=== PATIENT | male | born 1945 | race Caucasian/White ===

== ENCOUNTER 2024-03-16 08:58 | Inpatient (IN) ==
--- NOTE | 2024-03-09 09:05 | Anesthesiology Consultation ---
Date of Service March 09, 2024 Assessment & Plan (1) Encounter for pre-operative examination: Plan - will add cardiac event monitor report from [facility] if completed before surgery for chart completion, if not available by time of surgery patient is acceptable to proceed given indication for procedure. - cardiology office note 05/12/23: "...follow up of CAD...doing overall well...denies anginal complaints...bilateral internal carotid artery stenosis of 50-69%...follow up 1 year..." Patient states that quality assurance coordinator was made aware of TIA and ordered 30 day cardiac event monitor which patient is wearing until 03/07/24. Nat with surgeon's office confirmed their office is aware. OR notified. - difficult intubation. - Per clinician oncology on 03/03/24: No known infectious disease contacts, current infectious disease symptoms in past 10 days or COVID positive test result in the past 30 days. Chart Review Chart Review: Acceptable Risk for Surgery and Patient NOT seen in Pre Admission Testing History Surgery Operation Date: 03/16/24 10:05 Proposed Procedures p Left Transcarotid Artery Revascularization - Stanislaw Lares MD Height/Weight Height: 5 ft 8 in Weight: 83.915 kg Allergies Allergy/AdvReac Type Severity Reaction Status Date / Time adhesive tape Allergy Severe water Verified 03/03/24 09:00 blisters and skin irritation codeine Allergy Intermediate Rash Verified 03/03/24 09:00 Penicillins Allergy Unknown Unknown Verified 03/03/24 09:00 Sulfa (Sulfonamide Allergy Unknown Unknown Verified 03/03/24 09:00 Antibiotics) [id number] Reductase AdvReac Intermediate Muscle Pain Verified 03/03/24 09:00 Inhibitor Medications Home Medications Medication Instructions Recorded Confirmed Last Taken ascorbate calcium (vitamin C) 500 500 mg PO QAM 02/23/24 03/03/24 Unknown mg tablet baclofen 5 mg tablet 5 mg PO TID PRN muscle spasms 02/23/24 03/03/24 Unknown chlorpheniramine maleate 4 mg 4 mg PO BID PRN seasonal allergies 02/23/24 03/03/24 Unknown tablet cholecalciferol (vitamin D3) 125 125 mcg PO QAM 02/23/24 03/03/24 Unknown mcg (5,000 unit) tablet (Vitamin D3) clindamycin HCl 300 mg capsule 300 mg PO UD PRN dental procedures 02/23/24 03/03/24 Unknown clopidogrel 75 mg tablet 75 mg PO QAM 02/23/24 03/03/24 Unknown cyanocobalamin (vitamin B-12) 500 500 mcg PO QAM 02/23/24 03/03/24 Unknown mcg tablet (Vitamin B-12) ezetimibe 10 mg tablet 5 mg PO BID 02/23/24 03/03/24 Unknown levothyroxine 50 mcg tablet 50 mcg PO QAM 02/23/24 03/03/24 Unknown lisinopril 20 mg tablet 20 mg PO QAM 02/23/24 03/03/24 Unknown magnesium 250 mg tablet 250 mg PO QAM 02/23/24 03/03/24 Unknown metoprolol tartrate 25 mg tablet 12.5 mg PO BID 02/23/24 03/03/24 Unknown vitamin B complex 1 tab PO QAM 02/23/24 03/03/24 Unknown ofloxacin 0.3 % eye drops 5 drp otic (ear) BID 03/03/24 03/03/24 Unknown Past Medical History Medical History CAD (coronary artery disease) follows with Dr. Jackson Ear infection original surgery on 03/01 cancelled due to ear infection, which started on 02/27, saw ear doctor, Curt Nunez NP in [place] and will see again on 03/12/24 prior to surgery History of difficult intubation Questionable - Patient states he was told he "should be intubated with a smaller scope" [facility] History of TIA (transient ischemic attack) 01/27/24 - treated at [facility]. presented with dizziness and weakness of right hand. Did not see cardio but states that cardio made aware of recent TIA and recommended 30 day conveyor monitor (patient currently wearing, to end 03/07/[address] Jackson) Hx of colonic polyps Hx of renal calculi (2020) passed on his own Hyperlipidemia Hypertension Hypothyroidism On anticoagulant therapy Osteoarthritis Peripheral neuropathy bilateral feet Sleep apnea unable to tolerate CPAP at night Past Family History Family History Other No family history of adverse response to anesthesia Past Surgical History Surgical History History of cardiac cath (05/2019) prior to CABG History of cataract surgery right eye History of colonoscopy History of left hip replacement History of right hip replacement S/P CABG x 5 (05/2019) [facility] Andres S/P ear surgery Dr Tse S/P right inguinal hernia repair S/P tympanoplasty replacement of ear drum Social History Smoking Status: Never smoker Do You Dip or Chew Tobacco: No Hx Alcohol Use: Yes Alcohol type: beer alcohol intake frequency: holidays/special occasions only Hx Substance Use: No substance use type: does not use Testing Laboratory Results 01/27/24 WBC: 7.2 H/H: 16/50 PLATELETS: 131,000 SODIUM: 140 POTASSIUM: 4.6 CHLORIDE: 105 CO2: 30 BUN: 14 CREATININE: 1.2 GLUCOSE: 129 PT: 11.4 PTT: 33.3 INR: 0.9 UA: negative Electrocardiogram Date: 01/27/24 Sinus bradycardia with first degree AV block, rate 56 bpm Possible LA enlargement Possible LVH Chest X-Ray Date: 01/27/24 *1view* No acute cardiopulmonary process. Echocardiogram Date: 01/28/24 EF 60-65% Although no diagnostic regional wall motion abnormality is identified, this possibility cannot be completely excluded on the basis of this study Mitral valve annulus is mildly calcified Cardiac Catheterization Date: 06/02/19 Left main: 80% narrowing LAD: 95% stenoses; mid 50-60% narrowing LCx: diffuse proximal 90% stenosis RCA: diffuse proximal 95% stenosis EF 50% Subsequent CABG x 5
--- NOTE | 2024-03-15 15:59 | History & Physical Report ---
Date of Service March 15, 2024 History of Present Illness Primary Care Provider: JAKOB Barrera Reason for Consultation Symptomatic left internal carotid artery stenosis History of Present Illness I had the pleasure of seeing Patric today for evaluation of his left carotid. As you know he is a 78-year-old gentleman who in the end of January suffered a left hemispheric stroke which even weakness in his right arm which lasted approximately 4 to 5 hours. He did return to normal at that time. He has no recurrent episodes or previous episodes of this problem. He had a CT angiogram which showed a 60 to 65% narrowing of the left internal carotid artery. He does have a history of hypertension and coronary disease. He is on Plavix. Review of Systems 10 systems were reviewed. Positive findings are per the HPI. Physical Exam Vitals & Measurements Input and Output - Last 24 hours (Last 8 hours) No I/O Data Found: On exam he is awake alert and oriented x 3. He is in no apparent distress. His blood pressure is 130/80 on the right and 128/80 on the left. Radials and carotids are +2 bilaterally. I cannot appreciate any carotid bruits. His lungs are clear his heart is regular rate and rhythm. Abdominal exam is benign. There is no abnormal dilatation of the aorta. Vascular exam reveals radials carotids +2 bilaterally. Femorals and pedal pulses are all +2 bilaterally. Neurologic exam is intact to motor and sensory function. Diagnostic Results Carotid ultrasound done today of the left carotid showed no increased velocities but a moderate amount of plaque present. CT angiogram showed approximately 70% narrowing of his left internal carotid artery with an area that may be an ulcerative plaque with intraplaque hemorrhage. Assessment/Plan 1. Carotid stenosis, bilateral At this point with the 70% narrowing and the ulcerative plaque on the CT angiogram and the patient with symptoms, we recommended intervention on the left carotid. We went over the risks options and benefits of carotid endarterectomy versus TCAR. The patient and elected to go ahead with the TCAR procedure the left carotid. The risks options and benefits were discussed again and documented in the consent form. They are agreeable to go ahead with this procedure. Will keep you informed as to the results. Thank you very much for letting us participate in the care of this patient. Sincerely, Sweetie Lares MD Attestation I have personally spent ___55__ minutes performing [id number] and fpc-tomc-wy-face activities on this date of service. Activities Include: _x_ review of the medical record _x_ obtaining a history __x physical exam/evaluation __ review labs _x review radiology reports __x counseling/educating patient/family/caregiver __ discussion/referral to other healthcare professional _x_ documenting care in the medical record __x independent interpretation of results cta done at [facility] __ communication of results to patient/family/caregiver __ coordination of care Problem List/Past Medical History Ongoing Carotid stenosis, bilateral Medications Home acetaminophen(acetaminophen 325 mg oral tablet), 650 mg= 2 tab, PO, q4h, PRN ascorbic acid(Glenda-C 500 mg oral tablet), 500 mg, PO, Daily aspirin(aspirin 81 mg oral delayed release tablet), 81 mg= 1 tab, PO, Daily baclofen(baclofen 10 mg oral tablet), 10 mg= 1 tab, PO, tid cholecalciferol(cholecalciferol 125 mcg (5000 intl units) oral tablet), 125 mcg= 1 tab, PO, Daily clopidogrel(clopidogrel 75 mg oral tablet) cyanocobalamin(Vitamin B12 500 mcg oral tablet), 500 mcg= 1 tab, PO, Daily ezetimibe(ezetimibe 10 mg oral tablet) levothyroxine(levothyroxine 50 mcg (0.05 mg) oral tablet), 50 mcg= 1 tab, PO, Daily lisinopril(lisinopril 20 mg oral tablet), 20 mg= 1 tab, PO, Daily loratadine(loratadine 10 mg oral capsule), 10 mg= 1 cap, PO, Daily magnesium oxide(magnesium oxide 250 mg oral tablet), 250 mg= 1 tab, PO, Daily metoprolol(Metoprolol Tartrate 25 mg oral tablet), 12.5 mg= 0.5 tab, PO, bid multivitamin(B-Complex 50 oral tablet), 1 tab, PO, Daily zinc acetate(zinc (as acetate) 50 mg oral capsule), 50 mg= 1 cap, PO, Daily Allergies PCN (penicillin) unknown codeine unknown sulfa drugs unknown Signature Line Electronic Signature on File Stanislaw Lares MD Author Signature Dt/Tm: 02/19/2024 12:30 PM Neurological Physiotherapist Adan Watsno [facility] [place] [address], [address] [place] [address] EJS Result Type: .Outpt Ltr Date of Service: February 19, 2024 12:24 EDT Authorization Status: Final Subject: Consult Note Author or Import Date: MD Lares Eugene J on February 19, 2024 12:30 EDT Verified By: MD Lares Eugene J on February 19, 2024 12:30 EDT Encounter info: [id number], [place] [id number], Clinic, 02/19/2024 - 02/19/2024 Allergies Allergy/AdvReac Type Severity Reaction Status Date / Time adhesive tape Allergy Severe water Verified 03/03/24 09:00 blisters and skin irritation codeine Allergy Intermediate Rash Verified 03/03/24 09:00 Penicillins Allergy Unknown Unknown Verified 03/03/24 09:00 Sulfa (Sulfonamide Allergy Unknown Unknown Verified 03/03/24 09:00 Antibiotics) [id number] Reductase AdvReac Intermediate Muscle Pain Verified 03/03/24 09:00 Inhibitor Home Medications Medication Instructions Recorded Confirmed Type ascorbate calcium (vitamin C) 500 500 mg PO QAM 02/23/24 03/03/24 History mg tablet baclofen 5 mg tablet 5 mg PO TID PRN muscle spasms 02/23/24 03/03/24 History chlorpheniramine maleate 4 mg 4 mg PO BID PRN seasonal allergies 02/23/24 03/03/24 History tablet cholecalciferol (vitamin D3) 125 125 mcg PO QAM 02/23/24 03/03/24 History mcg (5,000 unit) tablet (Vitamin D3) clindamycin HCl 300 mg capsule 300 mg PO UD PRN dental procedures 02/23/24 03/03/24 History clopidogrel 75 mg tablet 75 mg PO QAM 02/23/24 03/03/24 History cyanocobalamin (vitamin B-12) 500 500 mcg PO QAM 02/23/24 03/03/24 History mcg tablet (Vitamin B-12) ezetimibe 10 mg tablet 5 mg PO BID 02/23/24 03/03/24 History levothyroxine 50 mcg tablet 50 mcg PO QAM 02/23/24 03/03/24 History lisinopril 20 mg tablet 20 mg PO QAM 02/23/24 03/03/24 History magnesium 250 mg tablet 250 mg PO QAM 02/23/24 03/03/24 History metoprolol tartrate 25 mg tablet 12.5 mg PO BID 02/23/24 03/03/24 History vitamin B complex 1 tab PO QAM 02/23/24 03/03/24 History ofloxacin 0.3 % eye drops 5 drp otic (ear) BID 03/03/24 03/03/24 History Past Med/Surg History Problem List Encounter for pre-operative examination Medical History CAD (coronary artery disease) follows with Dr. Jackson Ear infection original surgery on 03/01 cancelled due to ear infection, which started on 02/27, saw ear doctor, Curt Nunez NP in [facility] and will see again on 03/12/24 prior to surgery History of difficult intubation Questionable - Patient states he was told he "should be intubated with a smaller scope" after 2018 CABG ([facility] Andres 05/2019) History of TIA (transient ischemic attack) 01/27/24 - treated at [facility]. presented with dizziness and weakness of right hand. Did not see cardio but states that cardio made aware of recent TIA and recommended 30 day cafeteria monitor (patient currently wearing, to end 03/07/[address] Jackson) Hx of colonic polyps Hx of renal calculi (2020) passed on his own Hyperlipidemia Hypertension Hypothyroidism On anticoagulant therapy Osteoarthritis Peripheral neuropathy bilateral feet Sleep apnea unable to tolerate CPAP at night Surgical History History of cardiac cath (05/2019) prior to CABG History of cataract surgery right eye History of colonoscopy History of left hip replacement History of right hip replacement S/P CABG x 5 (05/2019) [facility] Andres S/P ear surgery Dr [place] S/P right inguinal hernia repair S/P tympanoplasty replacement of ear drum Family History Other No family history of adverse response to anesthesia Social History Smoking Status: Never smoker Second Hand Exposure: No; Do You Dip or Chew Tobacco: No; Tobacco Cessation Education Requested by Patient: No Hx Alcohol Use: Yes Alcohol type: beer Hx Substance Use: No Preferred Language: [place] Communication Ability: Effective Siding Applicator Required: No Beliefs That Will Affect Care: None Current Living Situation: Spouse Other Information That Helps Us Care for You: No Feels Safe at Home: Yes Safety Concerns: Feels Safe At This Time Assistive Devices: Denture - Upper, Glasses and Hearing Aid - Bilateral
[~2024-03-16 08:58] MED LIST: DEXAMETHASONE SOD INJ 4 MG/ML VIAL ONE; GLYCOPYRROLATE 0.2 MG/ML VIAL ONE; HEPARIN SOD (PORCINE) 1000 UNIT/ML ONE; LIDOCAINE 2% 2 ML VIAL/AMP(20MG/ML) INFIL ONE; MIDAZOLAM HCL 1 MG/ML 2ML VIAL ONE; ONDANSETRON INJ 2 MG/ML 2 ML VIAL ONE; PHENYLEPHRINE 100MCG/ML 10ML SYR IV ONE; PHENYLEPHRINE HCL 10 MG/ML VIAL ONE; PROPOFOL IV EMULSION 10 MG/ML 20 ML VIAL IV ONE; PROTAMINE SULFATE 10 MG/ML 5 ML VIAL IV ONE; ROCURONIUM BROMIDE 10 MG/ML 5 ML VIAL IV ONE; SUGAMMADEX SODIUM 200 MG/2 ML VIAL IV ONE; fentaNYL citrate PF 100 MCG/2 ML VIAL ONE
[2024-03-16] MEDS: ASPIRIN 81 MG ECTAB PO STA (09:53)
[2024-03-16] MEDS: LACTATED RINGER'S 1,000 ML IV SCH ×2 (09:53→16:04)
--- NOTE | 2024-03-16 10:33 | History & Physical Bridge Note ---
Date of Service March 16, 2024 History & Physical Bridge Note I have examined the patient, reviewed the History & Physical and in the interval since the performance of the History & Physical I have noted the following changes of clinical significance: no changes noted
[2024-03-16] MEDS: CLINDAMYCIN/D5W 900 MG/50 ML BAG IV SCH (11:08)
[2024-03-16] MEDS: ceFAZolin 330 MG/ML 1 GM VIAL ONE (12:06)
[2024-03-16] MEDS: VISIPAQUE IV ONE (12:25)
[2024-03-16] MEDS: SURGICEL ABSORB HEMOSTAT 2IN X 14IN TOP ONE (12:26)
--- NOTE | 2024-03-16 12:43 | Post Operative Brief Note ---
Immediate Post Op Note Date of Surgery March 16, 2024 Pre & Post Diagnosis Operation Date: 03/16/24 10:35 Pre-Op Diagnosis: Symptomatic Left Internal Carotid Artery Stenosis Post-Op Diagnosis: Symptomatic Left Internal Carotid Artery Stenosis I identified the patient and participated in the time-out.: Yes Procedure Operation Date: 03/16/24 10:35 Actual Procedures p Left Transcarotid Artery Revascularization(Left), Ultrasound right common femoral vein - Stanislaw Lares MD Surgeon Stanislaw Lares MD Manager Food Safety MD Lance FloresMinarchmargaret,PAC Estimated Blood Loss 10 Findings Consistent with Post-Op Diagnosis Anesthesia Type General Complications none Disposition Accompanied Patient To Recovery: No Disposition: Recovery Room
[2024-03-16] MEDS: BUPIVACAINE/EPINEPHRINE 0.5% MPF 1:200,000 30 ML VIAL ONE (12:45)
[2024-03-16] MEDS: ARISTA ABSORBABLE HEMOSTAT 3GM TOP ONE (12:46)
--- NOTE | 2024-03-16 12:49 | Operative Report ---
Post Operative Report Pre & Post Diagnosis Operation Date: 03/16/24 10:35 Pre-Op Diagnosis: Symptomatic Left Internal Carotid Artery Stenosis Post-Op Diagnosis: Symptomatic Left Internal Carotid Artery Stenosis I identified the patient and participated in the time-out.: Yes Procedure Operation Date: 03/16/24 10:35 Actual Procedures p Left Transcarotid Artery Revascularization, Ultrasound Right Femoral Vein(Left) - Stanislaw Lares MD Surgeon Stanislaw Lares MD Cement Handler Ellen Bañuelos MD; Julita Rai PA-C Estimated Blood Loss 10 Findings See Below Patient had significant left carotid artery stenosis, improved after balloon angioplasty and stent. There was good wall apposition with brisk flow visualized on completion angiogram. Specimens None Anesthesia Type General Disposition Accompanied Patient To Recovery: Yes Indications 78 year old male with symptomatic left carotid artery stenosis who was found to be an appropriate candidate for TCAR. After discussion of risks and benefits, patient consented to undergo the procedure. Description of Procedure The patient was brought to the operating room, where lines were placed and general anesthesia was accomplished by anesthesia team. A shoulder roll was placed and the neck was rotated towards the right side of the patient. The left neck and bilateral groins were prepped and patient was draped in the usual sterile fashion. A timeout was performed identifying the correct patient by name, procedure, and location of procedure and all were in agreement. A 3cm transverse incision was made between the sternal and clavicular heads of the sternocleidomastoid muscle. The muscle heads were retracted to each side and the carotid sheath was identified. Using blunt dissection, the carotid sheath was opened and 3cm of common carotid artery (CCA) were isolated. Umbilical tape was placed around the proximal CCA under direct visualization. A 5-0 prolene U- stitch was pre-placed in the anterior wall of the CCA to facilitate hemostasis after removal of the arterial sheath at completion of the procedure. The patient was given 8,000 units of IV heparin. The contralateral (right) common femoral vein was accessed under ultrasound guidance using an access needle, and a wire and sheath were placed using modified Seldinger technique. The venous return sheath was advanced into the common femoral vein over the 0.035" wire. Blood was aspirated from the flow line and the sheath was flushed with heparinized saline.The sheath was secured to the patient's skin with a 2-0 silk stitch to maintain position in the vessel. ACT was confirmed to be above 250 seconds prior to arterial access. A 4-Estonian non- stiffened micropuncture set was used, puncturing the artery with a 21G needle through the skin and then through the pre-placed U-stitch in the artery while holding gentle traction on the umbilical tape to stabilize the CCA within the incision. The micropuncture wire was advanced 3-4cm into the CCA and the 21G n eedle removed. The micropuncture sheath was advanced 3cm into the CCA and the wire and dilator were removed. A cerebral angiogram was obtained after ensuring there were no air bubbles in the system. The J-tipped guidewire was inserted and the wire was stopped short of the plaque on the common carotid artery. A skin daja was made over the wire at the site of sheath insertion. After micropuncture sheath removal, the transcarotid arterial sheath was advanced to the 2cm marker and the 0.035" wire and dilator were removed. Arterial sheath position was assessed under fluoroscopy. The arterial sheath was sutured to the patient at two sites. The Flow Controller was connected to the transcarotid arterial sheath, prepared by passively allowing arterial blood to backfill the line and then it was co nnected to the venous return sheath. The CCA was clamped proximally with a Dae tourniquet to ensure active flow reversal. Heparinized saline was delivered into the venous flow line to confirm adequate flow reversal. A TCAR timeout was performed, heart rate was >70bpm and systolic BP was >140mmHg. Patient had been pretreated with glycopyrrolate and atropine was available. The lesion was crossed with an 0.014" guidewire and pre-dilation balloon angioplasty was performed with a 6x35mm [employer] rapid exchange balloon. A 9-7x40mm [id number] transcarotid stent was placed. A completion angiogram was performed showing appropriate stent position with good wall apposition and no need for post-stent balloon dilation. At TCAR case completion, antegrade flow was restored by releasing the tourniquet on the CCA and closing the stopcocks to the flow lines. The total clamp time was 10 minutes. The transcarotid arterial sheath was removed and the pre-placed suture was tied. 25mg of protamine were given. A repeat ACT was obtained and was 128. The venous return sheath was removed and hemostasis achieved with manual compression. The neck incision was irrigated with saline solution and was hemostatic before closure. 20cc of 0.25% marcaine with epinephrine were used for local anesthesia around skin edges. The platysma was approximated with 3-0 Vicryl running suture and the skin was closed with 4-0 running Vicryl suture and covered with Dermabond. The skin daja was approximated with Dermabond. The patient tolerated the procedure well and was extubated in the operating room. He was moving all four extremities to command prior to transfer to the recovery room. All counts were correct at the end of the procedure. Fluoroscopy time was 3.6 minutes, radiation dose was 49 mGy and 9 cc of contrast were used. Dr. Lares was present and scrubbed for the entire procedure. I attest to the content of the Intraoperative Record and any orders documented therein. Any exceptions are noted below.
[2024-03-16] MEDS: THROMBIN FOR SOLN 20000 UNIT KIT ONE (12:56)
[2024-03-16] MEDS: GELATIN SPONGE SZ 100 ONE (12:56)
--- NOTE | 2024-03-16 13:37 | Anesthesiology Progress Note ---
Date of Service March 16, 2024 Anesthesia Post Procedure Vital Signs Vital Signs: Temp Pulse Pulse Resp BP BP BP 03/16/24 13:30 71 16 136/60 123/68 03/16/24 13:20 68 12 136/61 127/70 03/16/24 13:10 74 20 134/58 L 125/71 03/16/24 13:04 36 C L 77 14 130/70 03/16/24 09:42 36.6 C 61 18 147/84 H 148/90 H Pulse Ox O2 Del Method O2 Flow Rate 03/16/24 13:30 99 Room Air 03/16/24 13:20 100 Oxymask 4 03/16/24 13:10 100 Oxymask 13 03/16/24 13:04 100 Oxymask 13 03/16/24 09:42 99 Room Air Transfer of Care Handoff Completed per policy Notes Mental Status: alert / awake / arousable Patient Amnestic to Procedure: Yes Nausea / Vomiting: adequately controlled Pain: adequately controlled Airway Patency, RR, SpO2: stable & adequate BP & HR: stable & adequate Hydration State: stable & adequate Anesthetic Complications: no major complications apparent and Pt Satisfied with anesthetic care
[2024-03-16] MEDS ORDERED: NON-FORMULARY MEDICATION (Chlorpheniramine Maleate 4 mg Tablet) PO PRN (15:43)
[2024-03-16] MEDS ORDERED: PHENYLEPHRINE/NSS 25 MG/250 ML BAG IV PRN (15:43)
[2024-03-16] MEDS ORDERED: STAT IV Infusion **Titration per Protocol STA (15:43)
[2024-03-16] MEDS ORDERED: BACLOFEN 10 MG TAB PO PRN (15:43)
[2024-03-16] MEDS: oxyCODONE/ACETAMINOPHEN 5mg/325mg TAB PO PRN (16:06)
--- NOTE | 2024-03-16 16:20 | Critical Care Consultation ---
Date of Consultation March 16, 2024 Assessment & Plan (1) Hypothyroidism: (2) Peripheral neuropathy: (3) Sleep apnea: (4) Hyperlipidemia: (5) Hypertension: (6) CAD (coronary artery disease): Plan -- Carotid atherosclerosis S/p left TCAR 03/16/[address] Lares Continue with Plavix starting tomorrow Continue with neurochecks Monitor H&H -- Hypertension Continue with blood pressure medication -- Dyslipidemia Continue with Zetia -- History of EMA Unable to tolerate CPAP --Prophylaxis VTE: IPC GI: None Lines: Radial Diet: Cardiac Plan: Strict in and out Neurochecks every 4 Patient blood pressure is a bit on the higher side, could be secondary to pain He is supposed to get his metoprolol 12.5 mg at 9 PM, will give it at around 5:30-6 PM instead. Please note the above document was generated using voice recognition software. It may contain grammatical, syntax or spelling errors.Any formal questions or concerns about the content, text or information contained within the body of this dictation should be directly addressed to the provider for clarification. History of Present Illness Attending Physician: Stanislaw Lares MD History of Present Illness 78-year-old male presented to the hospital for left TCAR Past medical history: Hypertension, hypothyroidism, dyslipidemia Patient was sent to the ICU for postop care At the time of examination patient was in the room Patient was in mild distress secondary to pain at the site of the incision. He was talking in full sentences. Systolic blood pressure was in the 140s with heart rate in the high 70s. He is just got pain medication for the left neck discomfort. Denied any chest pain, no abdominal pain, no nausea vomiting He had sips of water and he was able to swallow without any issues Denied any headache right now, no blurry vision Social history: Lifetime non-smoker Allergies Allergy/AdvReac Type Severity Reaction Status Date / Time adhesive tape Allergy Severe water Verified 03/16/24 09:27 blisters and skin irritation codeine Allergy Intermediate Rash Verified 03/16/24 09:27 Penicillins Allergy Unknown Unknown Verified 03/16/24 09:27 Sulfa (Sulfonamide Allergy Unknown Unknown Verified 03/16/24 09:27 Antibiotics) [id number] Reductase AdvReac Intermediate Muscle Pain Verified 03/16/24 09:27 Inhibitor Home Medications Medication Instructions Recorded Confirmed Type ascorbate calcium (vitamin C) 500 500 mg PO QAM 02/23/24 03/16/24 History mg tablet baclofen 5 mg tablet 5 mg PO TID PRN muscle spasms 02/23/24 03/16/24 History chlorpheniramine maleate 4 mg 4 mg PO BID PRN seasonal allergies 02/23/24 03/16/24 History tablet cholecalciferol (vitamin D3) 125 125 mcg PO QAM 02/23/24 03/16/24 History mcg (5,000 unit) tablet (Vitamin D3) clindamycin HCl 300 mg capsule 300 mg PO UD PRN dental procedures 02/23/24 03/16/24 History clopidogrel 75 mg tablet (Plavix) 75 mg PO QAM 02/23/24 03/16/24 History cyanocobalamin (vitamin B-12) 500 500 mcg PO QAM 02/23/24 03/16/24 History mcg tablet (Vitamin B-12) ezetimibe 10 mg tablet (Zetia) 5 mg PO DAILY 02/23/24 03/16/24 History levothyroxine 50 mcg tablet 50 mcg PO QAM 02/23/24 03/16/24 History lisinopril 20 mg tablet 20 mg PO DAILY 02/23/24 03/16/24 History magnesium 250 mg tablet 250 mg PO QAM 02/23/24 03/16/24 History metoprolol tartrate 25 mg tablet 12.5 mg PO BID 02/23/24 03/16/24 History vitamin B complex 1 tab PO QAM 02/23/24 03/16/24 History aspirin 81 mg tablet 81 mg PO PM 03/16/24 03/16/24 History Patient History Medical History CAD (coronary artery disease) follows with Dr. Jackson Ear infection original surgery on 03/01 cancelled due to ear infection, which started on 02/27, saw ear doctor, Curt Nunez NP in [facility] and will see again on 03/12/24 prior to surgery History of difficult intubation Questionable - Patient states he was told he "should be intubated with a smaller scope" after 2018 CABG ([facility] Andres 05/2019) History of TIA (transient ischemic attack) 01/27/24 - treated at [facility]. presented with dizziness and weakness of right hand. 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) [facility] Andres S/P ear surgery Dr Tse S/P right inguinal hernia repair S/P tympanoplasty replacement of ear drum Family History Other No family history of adverse response to anesthesia Social History Smoking Status: Never smoker Second Hand Exposure: No; Do You Dip or Chew Tobacco: No; Tobacco Cessation Education Requested by Patient: No Hx Alcohol Use: Yes Alcohol type: beer Hx Substance Use: No Preferred Language: Italian Communication Ability: Effective Human Resources Communications Manager Required: No Beliefs That Will Affect Care: None Current Living Situation: Spouse Other Information That Helps Us Care for You: No Feels Safe at Home: Yes Safety Concerns: Feels Safe At This Time Assistive Devices: Denture - Upper, Glasses and Hearing Aid - Bilateral Review of Systems Review of Systems: All systems reviewed & are unremarkable except as noted in HPI & below Physical Exam Physical Exam: Constitutional: No acute distress HEENT: EOMI, PERRLA, left incision site clean, no significant hematoma, there is swelling of the left lateral neck, no stridor Respiratory system: Decreased air entry bilaterally, no wheeze, rhonchi, positive crackles bilateral lower lobes CVS: S1-S2 positive, no murmurs or gallops Abdomen: Soft, nontender, nondistended, positive bowel sounds x4 Extremities: +2 pulses bilaterally radialis/ dorsalis pedis, no cyanosis, no edema Neuro: Awake alert oriented x3, cranial nerves II to XII grossly intact Psych: Normal mood and affect G/U: No El Skin: no rashes, warm and dry Lymphatic: no cervical or axillary lymphadenopathy Results & Data Results & Data Vital Signs (Past 12 Hours) Vital Signs Temp Pulse Pulse Pulse Resp BP BP 03/16/24 16:02 03/16/24 16:00 144/77 H 03/16/24 16:00 67 16 03/16/24 15:37 67 16 151/88 H 03/16/24 15:33 74 18 03/16/24 15:00 67 16 03/16/24 14:45 65 17 03/16/24 14:30 66 21 03/16/24 14:15 36.4 C L 66 13 03/16/24 14:00 66 13 03/16/24 13:50 65 14 03/16/24 13:40 36.1 C L 64 13 03/16/24 13:30 71 16 03/16/24 13:20 68 12 03/16/24 13:10 74 20 03/16/24 13:04 36 C L 77 14 03/16/24 09:42 36.6 C 61 18 147/84 H BP BP Pulse Ox O2 Del Method O2 Flow Rate 03/16/24 16:02 Room Air 03/16/24 16:00 03/16/24 16:00 96 03/16/24 15:37 94 Room Air 03/16/24 15:33 137/95 96 Room Air 03/16/24 15:00 149/65 H 128/79 95 Room Air 03/16/24 14:45 146/64 H 135/76 96 Room Air 03/16/24 14:30 144/63 H 123/70 96 Room Air 03/16/24 14:15 137/60 128/70 95 Room Air 03/16/24 14:00 139/61 122/66 96 Room Air 03/16/24 13:50 136/59 L 118/66 96 Room Air 03/16/24 13:40 136/61 125/69 97 Room Air 03/16/24 13:30 136/60 123/68 99 Room Air 03/16/24 13:20 136/61 127/70 100 Oxymask 4 03/16/24 13:10 134/58 L 125/71 100 Oxymask 13 03/16/24 13:04 130/70 100 Oxymask 13 03/16/24 09:42 148/90 H 99 Room Air Coding Level of Care Code 77397 IN/OBS CONSULT LVL 3,45M Diagnoses Hypothyroidism E03.9 Peripheral neuropathy G62.9 Sleep apnea G47.30 Hyperlipidemia E78.5 Hypertension I10 CAD (coronary artery disease) I25.10
[2024-03-16] MEDS: METOPROLOL TARTRATE 25 MG TAB PO SCH (17:58)
[2024-03-16] MEDS: CLINDAMYCIN/D5W 600 MG/50 ML BAG IV SCH (18:23)
[2024-03-16] MEDS: ASPIRIN 81 MG ECTAB PO SCH (20:17)
[2024-03-17] MEDS: LEVOTHYROXINE SODIUM 50 MCG TABLET PO SCH (06:20)
--- NOTE | 2024-03-17 07:34 | Critical Care Progress Note ---
Date of Service March 17, 2024 Assessment & Plan (1) Hypothyroidism: (2) Peripheral neuropathy: (3) Sleep apnea: (4) Hyperlipidemia: (5) Hypertension: (6) CAD (coronary artery disease): Plan -- Carotid atherosclerosis S/p left TCAR 03/16/[address] Lares Continue with Plavix starting tomorrow Continue with neurochecks Monitor H&H -- Hypertension Continue with blood pressure medication -- Dyslipidemia Continue with Zetia -- History of EMA Unable to tolerate CPAP --Prophylaxis VTE: IPC GI: None Lines: Left radial Diet: Cardiac Plan: In/out: +1.32 L, urine output 1035 DC radial line Disposition as per vascular surgery Please note the above document was generated using voice recognition software. It may contain grammatical, syntax or spelling errors.Any formal questions or concerns about the content, text or information contained within the body of this dictation should be directly addressed to the provider for clarification. Admission and Anticipated Discharge Date Admission Date: March 16, 2024 Subjective Patient seen and examined at bedside. No acute distress, no adverse events overnight Denied any chest pain, no shortness of breath Mild soreness at the site of the incision. Had his breakfast, no difficulty swallowing Denied any headache or blurry vision. Review of Systems Review of Systems: All systems reviewed & are unremarkable except as noted in Subjective Physical Exam Physical Exam: Constitutional: No acute distress HEENT: EOMI, PERRLA, left incision site clean, no significant hematoma, there is swelling of the left lateral neck, improved from before, no stridor Respiratory system: Decreased air entry bilaterally, no wheeze, rhonchi, positive crackles bilateral lower lobes CVS: S1-S2 positive, no murmurs or gallops Abdomen: Soft, nontender, nondistended, positive bowel sounds x4 Extremities: +2 pulses bilaterally radialis/ dorsalis pedis, no cyanosis, no edema Neuro: Awake alert oriented x3, cranial nerves II to XII grossly intact Psych: Normal mood and affect G/U: No El Skin: no rashes, warm and dry Lymphatic: no cervical or axillary lymphadenopathy Results & Data Results & Data Vital Signs (Past 12 Hours) Vital Signs Temp Pulse Resp BP Pulse Ox 03/17/24 06:15 52 L 14 96 03/17/24 06:07 88/49 L 03/17/24 06:06 51 L 13 94 03/17/24 06:00 83/45 L 03/17/24 06:00 53 L 12 92 03/17/24 05:45 55 L 10 L 91 03/17/24 05:33 54 L 17 94 03/17/24 05:24 59 L 16 94 03/17/24 05:09 53 L 9 L 95 03/17/24 05:00 90/48 L 03/17/24 05:00 90/48 L 03/17/24 04:51 57 L 13 92 03/17/24 04:33 59 L 17 92 03/17/24 04:15 59 L 17 93 03/17/24 04:12 58 L 17 93 03/17/24 04:00 36.5 C 03/17/24 04:00 63 03/17/24 03:45 60 18 93 03/17/24 03:42 61 18 93 03/17/24 02:51 55 L 13 92 03/17/24 02:30 55 L 14 93 03/17/24 02:15 55 L 12 93 03/17/24 01:51 57 L 15 95 03/17/24 01:36 58 L 12 93 03/17/24 01:15 53 L 16 94 03/17/24 01:06 58 L 12 92 03/17/24 00:45 62 14 93 03/17/24 00:33 62 13 94 03/17/24 00:27 63 13 93 03/17/24 00:09 65 18 94 03/17/24 00:00 36.5 C 03/17/24 00:00 63 03/17/24 00:00 65 03/17/24 00:00 99/66 L 03/17/24 00:00 99/66 L 03/16/24 23:54 65 17 92 03/16/24 23:45 70 15 91 03/16/24 23:33 69 18 93 03/16/24 23:21 70 17 92 03/16/24 23:00 69 15 92 03/16/24 23:00 115/63 03/16/24 23:00 115/63 03/16/24 22:51 72 16 93 03/16/24 22:24 71 16 93 03/16/24 22:00 71 17 94 03/16/24 22:00 124/65 03/16/24 22:00 124/65 03/16/24 21:51 82 19 94 03/16/24 21:33 72 14 95 03/16/24 21:15 69 14 97 03/16/24 21:00 114/69 03/16/24 21:00 71 15 92 03/16/24 20:48 65 14 94 03/16/24 20:36 66 12 94 03/16/24 20:06 67 19 94 03/16/24 20:00 36.5 C 03/16/24 20:00 63 03/16/24 20:00 138/74 03/16/24 20:00 138/74 03/16/24 19:56 72 20 94 03/16/24 19:47 68 18 94 Coding Level of Care Code 58637 SUB INP/OBS CARE 07/31MIN Diagnoses Hypothyroidism E03.9 Peripheral neuropathy G62.9 Sleep apnea G47.30 Hyperlipidemia E78.5 Hypertension I10 CAD (coronary artery disease) I25.10
[2024-03-17] MEDS: CHOLECALCIFEROL 125 MCG (5,000 UNITS) TAB PO SCH (08:15)
[2024-03-17] MEDS: ASCORBIC ACID 500 MG TAB PO SCH (08:15)
[2024-03-17] MEDS: CYANOCOBALAMIN (B-12) 500 MCG TABLET PO SCH (08:15)
[2024-03-17] MEDS: VITAMIN B COMPLEX TAB PO SCH (08:15)
[2024-03-17] MEDS: lisinopril 20 MG TAB PO SCH (08:15)
[2024-03-17] MEDS: CLOPIDOGREL BISULFATE 75 MG TAB PO SCH (08:15)
[2024-03-17] MEDS: MAGNESIUM OXIDE 400 MG TAB PO SCH (08:19)
[2024-03-17 08:55] VITALS: TEMP 98.4
[2024-03-17] MEDS: EZETIMIBE 10 MG TAB PO SCH (09:15)
[2024-03-17 12:08] VITALS: RESP 22; O2SAT 95
[2024-03-17 12:14] VITALS: BP 101/55; PULSE 61
--- NOTE | 2024-03-17 12:33 | Surgery Progress Note ---
Date of Service March 17, 2024 Assessment & Plan (1) Stenosis of left internal carotid artery: Plan: Patient POD #1 from a left tcar. He has an uncomplicated post op course. He will be d/c today. Admission and Anticipated Discharge Date Admission Date: March 16, 2024 Subjective Patient with no complaints post op. Denies any focal deficits. Physical Exam Constitutional: WD/WN, vitals as above Neck: trachea midline Respiratory: normal respiratory effort; no respiratory distress Cardiovascular: Rate/Rhythm: regular rate and regular rhythm Skin: + incision (small hematoma of incision) Neurologic: CN's II-XI intact bilaterally and moves all extremities Psychiatric: A+Ox3, euthymic affect Results & Data Vital Signs (Past 12 Hours) Vital Signs Temp Pulse Pulse Pulse Resp BP BP 03/17/24 12:12 36.9 C 67 61 22 151/88 H 03/17/24 12:00 56 L 22 03/17/24 12:00 123/71 03/17/24 11:09 03/17/24 11:03 49 L 15 03/17/24 11:00 93/49 L 03/17/24 10:03 53 L 15 03/17/24 10:00 106/51 L 03/17/24 09:00 119/54 L 03/17/24 09:00 63 19 03/17/24 08:36 122/68 03/17/24 08:09 65 14 03/17/24 08:00 93/58 L 03/17/24 08:00 36.9 C 03/17/24 08:00 53 L 03/17/24 07:03 55 L 12 03/17/24 07:00 89/52 L 03/17/24 06:15 52 L 14 03/17/24 06:07 88/49 L 03/17/24 06:06 51 L 13 03/17/24 06:00 83/45 L 03/17/24 06:00 53 L 12 03/17/24 05:45 55 L 10 L 03/17/24 05:33 54 L 17 03/17/24 05:24 59 L 16 03/17/24 05:09 53 L 9 L 03/17/24 05:00 90/48 L 03/17/24 05:00 90/48 L 03/17/24 04:51 57 L 13 03/17/24 04:33 59 L 17 03/17/24 04:15 59 L 17 03/17/24 04:12 58 L 17 03/17/24 04:00 36.5 C 03/17/24 04:00 63 03/17/24 03:45 60 18 03/17/24 03:42 61 18 03/17/24 02:51 55 L 13 03/17/24 02:30 55 L 14 03/17/24 02:15 55 L 12 03/17/24 01:51 57 L 15 03/17/24 01:36 58 L 12 03/17/24 01:15 53 L 16 03/17/24 01:06 58 L 12 03/17/24 00:45 62 14 03/17/24 00:33 62 13 BP BP Pulse Ox 03/17/24 12:12 149/65 H 101/55 L 95 03/17/24 12:00 95 03/17/24 12:00 03/17/24 11:09 101/55 L 03/17/24 11:03 96 03/17/24 11:00 03/17/24 10:03 95 03/17/24 10:00 03/17/24 09:00 03/17/24 09:00 93 03/17/24 08:36 03/17/24 08:09 94 03/17/24 08:00 03/17/24 08:00 03/17/24 08:00 03/17/24 07:03 94 03/17/24 07:00 03/17/24 06:15 96 03/17/24 06:07 03/17/24 06:06 94 03/17/24 06:00 03/17/24 06:00 92 03/17/24 05:45 91 03/17/24 05:33 94 03/17/24 05:24 94 03/17/24 05:09 95 03/17/24 05:00 03/17/24 05:00 03/17/24 04:51 92 03/17/24 04:33 92 03/17/24 04:15 93 03/17/24 04:12 93 03/17/24 04:00 03/17/24 04:00 03/17/24 03:45 93 03/17/24 03:42 93 03/17/24 02:51 92 03/17/24 02:30 93 03/17/24 02:15 93 03/17/24 01:51 95 03/17/24 01:36 93 03/17/24 01:15 94 03/17/24 01:06 92 03/17/24 00:45 93 03/17/24 00:33 94
--- NOTE | 2024-03-17 12:38 | Discharge Summary ---
Date of Service March 17, 2024 Admission HPI Per Admitting Provider Reason for Consultation Symptomatic left internal carotid artery stenosis History of Present Illness I had the pleasure of seeing Patric today for evaluation of his left carotid. As you know he is a 78-year-old gentleman who in the end of January suffered a left hemispheric stroke which even weakness in his right arm which lasted approximately 4 to 5 hours. He did return to normal at that time. He has no recurrent episodes or previous episodes of this problem. He had a CT angiogram which showed a 60 to 65% narrowing of the left internal carotid artery. He does have a history of hypertension and coronary disease. He is on Plavix. Review of Systems 10 systems were reviewed. Positive findings are per the HPI. Physical Exam Vitals & Measurements Input and Output - Last 24 hours (Last 8 hours) No I/O Data Found: On exam he is awake alert and oriented x 3. He is in no apparent distress. His blood pressure is 130/80 on the right and 128/80 on the left. Radials and car otids are +2 bilaterally. I cannot appreciate any carotid bruits. His lungs are clear his heart is regular rate and rhythm. Abdominal exam is benign. There is no abnormal dilatation of the aorta. Vascular exam reveals radials carotids +2 bilaterally. Femorals and pedal pulses are all +2 bilaterally. Neurologic exam is intact to motor and sensory function. Diagnostic Results Carotid ultrasound done today of the left carotid showed no increased velocities but a moderate amount of plaque present. CT angiogram showed approximately 70% narrowing of his left internal carotid artery with an area that may be an ulcerative plaque with intraplaque hemorrhage. Assessment/Plan 1. Carotid stenosis, bilateral At this point with the 70% narrowing and the ulcerative plaque on the CT angiogram and the patient with symptoms, we recommended intervention on the left carotid. We went over the risks options and benefits of carotid endarterectomy versus TCAR. The patient and elected to go ahead with the TCAR procedure the left carotid. The risks options and benefits were discussed again and documented in the consent form. They are agreeable to go ahead with this procedure. Will keep you informed as to the results. Thank you very much for letting us participate in the care of this patient. Sincerely, Sweetie Del Angel MD Attestation I have personally spent ___55__ minutes performing [id number] and phz-yfen-eu-[id number] activities on this date of service. Activities Include: _x_ review of the medical record _x_ obtaining a history __x physical exam/evaluation __ review labs _x review radiology reports __x counseling/educating patient/family/caregiver __ discussion/referral to other healthcare professional _x_ documenting care in the medical record __x independent interpretation of results cta done at [facility] __ communication of results to patient/family/caregiver __ coordination of care Problem List/Past Medical History Ongoing Carotid stenosis, bilateral Medications Home acetaminophen(acetaminophen 325 mg oral tablet), 650 mg= 2 tab, PO, q4h, PRN ascorbic acid(Glenda-C 500 mg oral tablet), 500 mg, PO, Daily aspirin(aspirin 81 mg oral delayed release tablet), 81 mg= 1 tab, PO, Daily baclofen(baclofen 10 mg oral tablet), 10 mg= 1 tab, PO, tid cholecalciferol(cholecalciferol 125 mcg (5000 intl units) oral tablet), 125 mcg= 1 tab, PO, Daily clopidogrel(clopidogrel 75 mg oral tablet) cyanocobalamin(Vitamin B12 500 mcg oral tablet), 500 mcg= 1 tab, PO, Daily ezetimibe(ezetimibe 10 mg oral tablet) levothyroxine(levothyroxine 50 mcg (0.05 mg) oral tablet), 50 mcg= 1 tab, PO, Daily lisinopril(lisinopril 20 mg oral tablet), 20 mg= 1 tab, PO, Daily loratadine(loratadine 10 mg oral capsule), 10 mg= 1 cap, PO, Daily magnesium oxide(magnesium oxide 250 mg oral tablet), 250 mg= 1 tab, PO, Daily metoprolol(Metoprolol Tartrate 25 mg oral tablet), 12.5 mg= 0.5 tab, PO, bid multivitamin(B-Complex 50 oral tablet), 1 tab, PO, Daily zinc acetate(zinc (as acetate) 50 mg oral capsule), 50 mg= 1 cap, PO, Daily Allergies PCN (penicillin) unknown codeine unknown sulfa drugs unknown Signature Line Electronic Signature on File Stanislaw Del Angel MD Author Signature Dt/Tm: 02/19/2024 12:30 PM Production Administrative Assistant Adan Watson [facility] [address], [address] [place] [address] EJS Result Type: .Outpt Ltr Date of Service: February 19, 2024 12:24 EDT Authorization Status: Final Subject: Consult Note Author or Import Date: MD Del Angel Eugene J on February 19, 2024 12:30 EDT Verified By: MD Del Angel Eugene J on February 19, 2024 12:30 EDT Encounter info: [id number], [place] [id number], Clinic, 02/19/2024 - 02/19/2024 Admission Exam Per Admitting Provider On exam he is awake alert and oriented x 3. He is in no apparent distress. His blood pressure is 130/80 on the right and 128/80 on the left. Radials and carotids are +2 bilaterally. I cannot appreciate any carotid bruits. His lungs are clear his heart is regular rate and rhythm. Abdominal exam is benign. There is no abnormal dilatation of the aorta. Vascular exam reveals radials carotids +2 bilaterally. Femorals and pedal pulses are all +2 bilaterally. Neurologic exam is intact to motor and sensory function. Principal Diagnosis 1. s/p L TCAR 2. Symptomatic L ICA stenosis Discharge Exam Constitutional WD/WN, vitals as above Neck trachea midline Respiratory normal respiratory effort; no respiratory distress Cardiovascular Rate/Rhythm: regular rate and regular rhythm Skin + incision (small hematoma of incision) Neurologic CN's II-XI intact bilaterally and moves all extremities Psychiatric A+Ox3, euthymic affect Discharge Data Allergies Allergy/AdvReac Type Severity Reaction Status Date / Time adhesive tape Allergy Severe water Verified 03/16/24 09:27 blisters and skin irritation codeine Allergy Intermediate Rash Verified 03/16/24 09:27 Penicillins Allergy Unknown Unknown Verified 03/16/24 09:27 Sulfa (Sulfonamide Allergy Unknown Unknown Verified 03/16/24 09:27 Antibiotics) Hgwiwzl-GII-[id number] Reductase AdvReac Intermediate Muscle Pain Verified 03/16/24 09:27 Inhibitor Consultations 03/16/24 15:43 Consult Electronic Gaming Device Supervisor Routine Procedures Performed Operation Date: 03/16/24 10:35 Actual Procedures p Left Transcarotid Artery Revascularization, Ultrasound Right Femoral Vein(Left) - Stanislaw Del Angel MD Ordered Studies 03/16/24 07:19 EV angio carotid cerv LT Routine US EV guide vascular access Routine Hospital Course (1) Stenosis of left internal carotid artery: Patient POD #1 from a left tcar. He has an uncomplicated post op course. He will be d/c today. Total Time Total Time Spent Total Time Spent (In Minutes): 0 Discharge Plan Discharge Items Patient Disposition: Home - Self-Care Reason For Visit: Symptomatic Left Internal Carotid Arthery Stenosis Discharge Diagnosis: 1. s/p L TCAR 2. Symptomatic L ICA stenosis Activity: Per Instructions section Non-emergency contact: Primary Care Provider and Surgeon Call non-emergency contact if: you have any medication questions, your pain is not controlled, your pain is concerning for you, you have a fever, your wound has increased redness and your wound has increased drainage Follow-up/Referrals: Stanislaw Del Angel MD [Physician] - (Follow up with Dr Del Angel or Julita Rai PA-C, in 2 weeks) Scott Driver CRNP [Primary Care Provider] - (Follow up with your PCP within 2 weeks) Diet: Heart Healthy Addtl Attending Provider Instructions: SPECIAL CARE INSTRUCTIONS: Medications: * Continue to take Aspirin, plavix, and statin medications as directed. DO NOT STOP THESE MEDICATIONS WITHOUT SPEAKING TO DR DEL ANGEL'S OFFICE Incision Care: * You may shower, but do not rub incision. You may let the warm soapy water run over it. Be sure to dry the incision well after bathing. * Do not shave directly over the incision until it is healed. * DO NOT IMMERSE THE INCISION IN A TUB/POOL/etc. UNTIL HEALED. Restrictions: * Do not drive if you are still taking any narcotic pain medication. * Do not lift anything heavier than a gallon of milk for one week after going home. Possible Complications: * Numbness - It is normal to have some numbness around the incision. Numbness can extend beyond the incision to areas of the neck, ear and face. The numbness is due to bruising of nerves during the surgery and will gradually improve over a period of months. * Hoarseness/Difficulty Speaking and Swallowing - The bruising of nerves in the neck can also cause a hoarse voice, difficulty speaking or swallowing. This may improve over time, HOWEVER, if it continues for more than a few days please contact our office ([phone]). * Excessive Swelling - There will be some swelling immediately after surgery which usually resolves within one week. If you notice that the swelling is getting worse, notify your surgeon ([phone]). * Drainage/Bleeding - If there is any drainage or bleeding, it should be a very small amount (less than a teaspoon per day). If you have excessive bleeding or drainage from the incision, call your surgeon ([phone]) right away. ACTIVATION OF EMERGENCY MEDICAL SYSTEM: Call 911, immediately, if you experience any of the following: Warning Signs and Symptoms of Stroke: * Sudden numbness or weakness of the face, arm or leg, especially on one side of the body * Sudden confusion, trouble speaking or understanding * Sudden trouble seeing in one or both eyes * Sudden trouble walking, dizziness, loss of balance or coordination * Sudden severe headache with no cause Do not delay calling 911 if you experience any warning signs or symptoms of a stroke. Delay in seeking medical attention may affect what treatments can be given to you. Risk Factors for Stroke: You can reduce your chances of stroke by working with your medical provider to adopt a healthy lifestyle. Some specific ways to lower your chance of stroke are: * If you are a smoker, now is the time to stop smoking cigarettes * If you are diabetic, improve the control of your blood sugars * Avoid excessive amounts of alcohol * Control high blood pressure * Lose weight if you are overweight * Be sure to lead an active lifestyle * Eat a healthy diet low in salt, cholesterol and fat You should know about other risk factors for stroke that you are unable to control. These include: * Age 55 years or older * Male gender * Certain racial groups: , or / * Family History of Stroke, Mini stroke or Heart Attack * Sickle Cell Disease You will be receiving a call from the Vascular Surgery Nurse after you are discharged. FOLLOW UP VISIT: It is important for you to keep your follow up appointments with your medical provider. Keep any scheduled doctor appointments. Pending Studies at Discharge: No Stand-Alone Forms: My [facility], Smoking Cessation Medications and DC Order Prescriptions: New oxycodone-acetaminophen [Percocet] 5-325 mg Tablet 1 - 2 tab PO Q6H PRN (Reason: pain) Qty: 20 0RF Continued aspirin 81 mg Tablet 81 mg PO PM chlorpheniramine maleate 4 mg Tablet 4 mg PO BID PRN (Reason: seasonal allergies) lisinopril 20 mg Tablet 20 mg PO DAILY levothyroxine 50 mcg Tablet 50 mcg PO QAM metoprolol tartrate 25 mg Tablet 12.5 mg PO BID cyanocobalamin (vitamin B-12) [Vitamin B-12] 500 mcg Tablet 500 mcg PO QAM ascorbate calcium (vitamin C) 500 mg Tablet 500 mg PO QAM vitamin B complex Tablet 1 tab PO QAM magnesium 250 mg Tablet 250 mg PO QAM cholecalciferol (vitamin D3) [Vitamin D3] 125 mcg (5,000 unit) Tablet 125 mcg PO QAM ezetimibe [Zetia] 10 mg Tablet 5 mg PO DAILY clindamycin HCl 300 mg Capsule 300 mg PO UD PRN (Reason: dental procedures) clopidogrel [Plavix] 75 mg Tablet 75 mg PO QAM baclofen 5 mg Tablet 5 mg PO TID PRN (Reason: muscle spasms) Discharge Orders: Discharge Order (Routine); Ordered 03/17/24 Ordered By: Julita Rai Admission Data Admit Date/Time: 03/16/24 09:57 Attending Provider: Stanislaw Del Angel Admit Provider: Stanislaw Del Angel Primary Care Provider: Scott Driver Other Providers: Derrick Tidwell; Imtiaz Schulte; Daniel Lemus; Wilner Morales; Karl Mckeon; Lali Andrade Nathan S.; Brynn Prajapati; Jacklyn Baum; Hilario Russ; Jaron Agosto; Ailyn Noriega Other Interventions: Discharge Summary Assessment (RN) Last Done: 03/17/24 12:12
== END 2024-03-17 13:05 | disposition home or self-care (01) | DRG 36 ==
LOC: ASU 08:58 → 1E 09:57
PROC: EV.TCAR (2024-03-16 10:35)

== ENCOUNTER 2024-04-28 08:05 | Inpatient (IN) ==
--- NOTE | 2024-04-21 11:41 | Anesthesiology Consultation ---
Date of Service April 21, 2024 Assessment & Plan Chart Review Chart Review: Pending: Refer to Additional Notes / Consult section and Patient NOT seen in Pre Admission Testing significant new abnormalities in sodium and chloride are likely a lab error. these should be repeated prior to final clearance for OR. Consults Requested none Additional Notes patient had TCAR on contralateral side previously this year without any anesthetic complications. History Surgery Operation Date: 04/28/24 10:20 Proposed Procedures p Right Transcarotid Artery Revascularization - Stanislaw Lares MD Height/Weight Height: 5 ft 8 in Weight: 83.915 kg Allergies Allergy/AdvReac Type Severity Reaction Status Date / Time adhesive tape Allergy Severe water Verified 04/21/24 08:32 blisters and skin irritation codeine Allergy Intermediate Rash Verified 04/21/24 08:32 Penicillins Allergy Unknown Unknown Verified 04/21/24 08:32 Sulfa (Sulfonamide Allergy Unknown Unknown Verified 04/21/24 08:32 Antibiotics) [id number]-[id number] Reductase AdvReac Intermediate Muscle Pain Verified 04/21/24 08:32 Inhibitor Medications Home Medications Medication Instructions Recorded Confirmed Last Taken ascorbate calcium (vitamin C) 500 500 mg PO QAM 02/23/24 04/21/24 03/15/24 10:00 mg tablet baclofen 5 mg tablet 5 mg PO TID PRN muscle spasms 02/23/24 04/21/24 Unknown chlorpheniramine maleate 4 mg 4 mg PO BID PRN seasonal allergies 02/23/24 04/21/24 03/15/24 10:00 tablet cholecalciferol (vitamin D3) 125 125 mcg PO QAM 02/23/24 04/21/24 03/15/24 10:00 mcg (5,000 unit) tablet (Vitamin D3) clindamycin HCl 300 mg capsule 300 mg PO UD PRN dental procedures 02/23/24 04/21/24 Unknown clopidogrel 75 mg tablet (Plavix) 75 mg PO QAM 02/23/24 04/21/24 03/16/24 05:30 cyanocobalamin (vitamin B-12) 500 500 mcg PO QAM 02/23/24 04/21/24 03/15/24 10:00 mcg tablet (Vitamin B-12) ezetimibe 10 mg tablet (Zetia) 5 mg PO DAILY 02/23/24 04/21/24 03/16/24 05:30 levothyroxine 50 mcg tablet 50 mcg PO QAM 02/23/24 04/21/24 03/16/24 03:30 lisinopril 20 mg tablet 20 mg PO DAILY 02/23/24 04/21/24 03/15/24 10:00 magnesium 250 mg tablet 250 mg PO QAM 02/23/24 04/21/24 Unknown metoprolol tartrate 25 mg tablet 12.5 mg PO BID 02/23/24 04/21/24 03/16/24 05:30 vitamin B complex 1 tab PO QAM 02/23/24 04/21/24 Unknown aspirin 81 mg tablet 81 mg PO PM 03/16/24 04/21/24 03/15/24 21:00 oxycodone-acetaminophen 5 mg-325 1 - 2 tab PO Q6H PRN pain #20 tabs 03/17/24 04/21/24 Unknown mg tablet (Percocet) Past Medical History Medical History Ear infection original surgery on 03/01 cancelled due to ear infection, which started on 02/27, saw ear doctor, Curt Nunez NP in [facility] and will see again on 03/12/24 pr ior to surgery History of difficult intubation Questionable - Patient states he was told he "should be intubated with a smaller scope" [facility] Oste[facility] Hx of renal calculi (2020) passed on his own Hx of colonic polyps Hypothyroidism On anticoagulant therapy Peripheral neuropathy bilateral feet Sleep apnea unable to tolerate CPAP at night History of TIA (transient ischemic attack) 01/27/24 - treated at [facility]. presented with dizziness and weakness of right hand. Did not see cardio but states that cardio made aware of recent TIA and recommended 30 day school lunch monitor (patient currently wearing, to end 03/07/[address] Jackson) Hyperlipidemia Hypertension CAD (coronary artery disease) follows with Dr. Jackson Past Family History Family History Other No family history of adverse response to anesthesia Past Surgical History Surgical History (Updated 04/21/24 @ 08:53 by Camila Almanzar RN) S/P vascular surgery (03/16/24) left [facility] History of colonoscopy History of cataract surgery right eye S/P right inguinal hernia repair History of cardiac cath (05/2019) prior to CABG History of right hip replacement History of left hip replacement S/P tympanoplasty replacement of ear drum S/P ear surgery Dr Tse S/P CABG x 5 (05/2019) [facility] Andres Social History Smoking Status: Never smoker Do You Dip or Chew Tobacco: No Hx Alcohol Use: Yes Alcohol type: beer alcohol intake frequency: holidays/special occasions only Hx Substance Use: No substance use type: does not use Testing Laboratory Results Laboratory Tests 04/19/24 16:01 WBC 5.98 Hgb 15.1 Hct 48.2 Plt Count 133 Sodium 164 H* Potassium 4.0 Chloride 83 L Carbon Dioxide 21 BUN 14 Creatinine 0.87 Glucose 84 Echocardiogram Date: 01/28/24 EF: 65 LV Function: normal
--- NOTE | 2024-04-28 07:37 | History & Physical Report ---
Date of Service April 28, 2024 Assessment & Plan (1) Stenosis of left internal carotid artery: Plan: Patient is admitted for a left tcar. I have discussed the risks options and benefits of the procedure with the patient. The patient understands the risks options and benefits and agrees to the procedure. History of Present Illness Chief Complaint: Left internal carotid artery stenosis Primary Care Provider: JAKOB Barrera The patient is a 78-year-old gentleman who in the end of January suffered a left hemispheric stroke which even weakness in his right arm which lasted approximately 4 to 5 hours. He did return to normal at that time. He has no recurrent episodes or previous episodes of this problem. He had a CT angiogram which showed a 60 to 65% narrowing of the left internal carotid artery. He does have a history of hypertension and coronary disease. He is on Plavix. Allergies Allergy/AdvReac Type Severity Reaction Status Date / Time adhesive tape Allergy Severe water Verified 04/21/24 08:32 blisters and skin irritation codeine Allergy Intermediate Rash Verified 04/21/24 08:32 Penicillins Allergy Unknown Unknown Verified 04/21/24 08:32 Sulfa (Sulfonamide Allergy Unknown Unknown Verified 04/21/24 08:32 Antibiotics) Nytatyl-WII-XgQ Reductase AdvReac Intermediate Muscle Pain Verified 04/21/24 08:32 Inhibitor Home Medications Medication Instructions Recorded Confirmed Type ascorbate calcium (vitamin C) 500 500 mg PO QAM 02/23/24 04/21/24 History mg tablet baclofen 5 mg tablet 5 mg PO TID PRN muscle spasms 02/23/24 04/21/24 History chlorpheniramine maleate 4 mg 4 mg PO BID PRN seasonal allergies 02/23/24 04/21/24 History tablet cholecalciferol (vitamin D3) 125 125 mcg PO QAM 02/23/24 04/21/24 History mcg (5,000 unit) tablet (Vitamin D3) clindamycin HCl 300 mg capsule 300 mg PO UD PRN dental procedures 02/23/24 04/21/24 History clopidogrel 75 mg tablet (Plavix) 75 mg PO QAM 02/23/24 04/21/24 History cyanocobalamin (vitamin B-12) 500 500 mcg PO QAM 02/23/24 04/21/24 History mcg tablet (Vitamin B-12) ezetimibe 10 mg tablet (Zetia) 5 mg PO DAILY 02/23/24 04/21/24 History levothyroxine 50 mcg tablet 50 mcg PO QAM 02/23/24 04/21/24 History lisinopril 20 mg tablet 20 mg PO DAILY 02/23/24 04/21/24 History magnesium 250 mg tablet 250 mg PO QAM 02/23/24 04/21/24 History metoprolol tartrate 25 mg tablet 12.5 mg PO BID 02/23/24 04/21/24 History vitamin B complex 1 tab PO QAM 02/23/24 04/21/24 History aspirin 81 mg tablet 81 mg PO PM 03/16/24 04/21/24 History oxycodone-acetaminophen 5 mg-325 1 - 2 tab PO Q6H PRN pain #20 tabs 03/17/24 04/21/24 Rx mg tablet (Percocet) Past Med/Surg History Problem List S/P vascular surgery Stenosis of left internal carotid artery Medical History Ear infection original surgery on 03/01 cancelled due to ear infection, which started on 02/27, saw ear doctor, Curt Nunez NP in [facility] and will see again on 03/12/24 prior to surgery History of difficult intubation Questionable - Patient states he was told he "should be intubated with a smaller scope" [facility] Osteoarthritis Hx of renal calculi (2020) passed on his own Hx of colonic polyps Hypothyroidism On anticoagulant therapy Peripheral neuropathy bilateral feet Sleep apnea unable to tolerate CPAP at night History of TIA (transient ischemic attack) 01/27/24 - treated at [facility]. presented with dizziness and weakness of right hand. Did not see cardio but states that cardio made aware of recent TIA and recommended 30 day monitoring manager (patient currently wearing, to end 03/07/[address] Jackson) Hyperlipidemia Hypertension CAD (coronary artery disease) follows with Dr. Jackson Surgical History S/P vascular surgery (03/16/24) left [facility] History of colonoscopy History of cataract surgery right eye S/P right inguinal hernia repair History of cardiac cath (05/2019) prior to CABG History of right hip replacement History of left hip replacement S/P tympanoplasty replacement of ear drum S/P ear surgery Dr Dedrick S/P CABG x 5 (05/2019) [facility] Andres Family History Other No family history of adverse response to anesthesia Social History Smoking Status: Never smoker Second Hand Exposure: No; Do You Dip or Chew Tobacco: No; Tobacco Cessation Education Requested by Patient: No Hx Alcohol Use: Yes Alcohol type: beer Hx Substance Use: No Preferred Language: Burundian Communication Ability: Effective Restaurant Kitchen And Service Manager Required: No Beliefs That Will Affect Care: None Current Living Situation: Spouse Other Information That Helps Us Care for You: No Feels Safe at Home: Yes Safety Concerns: Feels Safe At This Time Assistive Devices: Denture - Upper, Glasses and Hearing Aid - Bilateral Review of Systems All systems reviewed & are unremarkable except as noted in HPI & below Physical Exam Physical Exam: On exam he is awake alert and oriented x 3. He is in no apparent distress. His blood pressure is 130/80 on the right and 128/80 on the left. Radials and carotids are +2 bilaterally. I cannot appreciate any carotid bruits. His lungs are clear his heart is regular rate and rhythm. Abdominal exam is benign. There is no abnormal dilatation of the aorta. Vascular exam reveals radials carotids +2 bilaterally. Femorals and pedal pulses are all +2 bilaterally. Neurologic exam is intact to motor and sensory function. Diagnostic Results Carotid ultrasound done today of the left carotid showed no increased velocities but a moderate amount of plaque present. CT angiogram showed approximately 70% narrowing of his left internal carotid artery with an area that may be an ulcerative plaque with intraplaque hemorrhage.
--- NOTE | 2024-04-28 07:47 | History & Physical Report ---
Date of Service April 28, 2024 Assessment & Plan (1) Stenosis of right carotid artery: Plan: Patient admtited for a right tcar. I have discussed the risks options and benefits of the procedure with the patient. The patient understands the risks options and benefits and agrees to the procedure. History of Present Illness Chief Complaint: Right internal carotid artery stenosis Primary Care Provider: JAKOB Barrera The patient is a 78-year-old gentleman who in the end of January suffered a left hemispheric stroke which even weakness in his right arm which lasted approximately 4 to 5 hours. He did return to normal at that time. He has no recurrent episodes or previous episodes of this problem. He had a CT angiogram which showed a 60 to 65% narrowing of the left internal carotid artery. He does have a history of hypertension and coronary disease. He is on Plavix. He underwent an uneventful left TCAR and now is admitted for a TCAR of his asymptomatic right carotid stenosis Allergies Allergy/AdvReac Type Severity Reaction Status Date / Time adhesive tape Allergy Severe water Verified 04/21/24 08:32 blisters and skin irritation codeine Allergy Intermediate Rash Verified 04/21/24 08:32 Penicillins Allergy Unknown Unknown Verified 04/21/24 08:32 Sulfa (Sulfonamide Allergy Unknown Unknown Verified 04/21/24 08:32 Antibiotics) [id number] Reductase AdvReac Intermediate Muscle Pain Verified 04/21/24 08:32 Inhibitor Home Medications Medication Instructions Recorded Confirmed Type ascorbate calcium (vitamin C) 500 500 mg PO QAM 02/23/24 04/21/24 History mg tablet baclofen 5 mg tablet 5 mg PO TID PRN muscle spasms 02/23/24 04/21/24 History chlorpheniramine maleate 4 mg 4 mg PO BID PRN seasonal allergies 02/23/24 04/21/24 History tablet cholecalciferol (vitamin D3) 125 125 mcg PO QAM 02/23/24 04/21/24 History mcg (5,000 unit) tablet (Vitamin D3) clindamycin HCl 300 mg capsule 300 mg PO UD PRN dental procedures 02/23/24 04/21/24 History clopidogrel 75 mg tablet (Plavix) 75 mg PO QAM 02/23/24 04/21/24 History cyanocobalamin (vitamin B-12) 500 500 mcg PO QAM 02/23/24 04/21/24 History mcg tablet (Vitamin B-12) ezetimibe 10 mg tablet (Zetia) 5 mg PO DAILY 02/23/24 04/21/24 History levothyroxine 50 mcg tablet 50 mcg PO QAM 02/23/24 04/21/24 History lisinopril 20 mg tablet 20 mg PO DAILY 02/23/24 04/21/24 History magnesium 250 mg tablet 250 mg PO QAM 02/23/24 04/21/24 History metoprolol tartrate 25 mg tablet 12.5 mg PO BID 02/23/24 04/21/24 History vitamin B complex 1 tab PO QAM 02/23/24 04/21/24 History aspirin 81 mg tablet 81 mg PO PM 03/16/24 04/21/24 History oxycodone-acetaminophen 5 mg-325 1 - 2 tab PO Q6H PRN pain #20 tabs 03/17/24 04/21/24 Rx mg tablet (Percocet) Past Med/Surg History Problem List (Updated 04/28/24 @ 07:46 by Stanislaw Lares MD) Stenosis of right carotid artery S/P vascular surgery Stenosis of left internal carotid artery Medical History Ear infection original surgery on 03/01 cancelled due to ear infection, which started on 02/27, saw ear doctor, Curt Nunez NP in [facility] and will see again on 03/12/24 prior to surgery History of difficult intubation Questionable - Patient states he was told he "should be intubated with a smaller scope" after 2018 CABG ([facility] 05/2019) Osteoarthritis Hx of renal calculi (2020) passed on his own Hx of colonic polyps Hypothyroidism On anticoagulant therapy Peripheral neuropathy bilateral feet Sleep apnea unable to tolerate CPAP at night History of TIA (transient ischemic attack) 01/27/24 - treated at [facility]. presented with dizziness and weakness of right hand. Did not see cardio but states that cardio made aware of recent TIA and recommended 30 day serologist (patient currently wearing, to end 03/07/[address] Jackson) Hyperlipidemia Hypertension CAD (coronary artery disease) follows with Dr. Jackson Surgical History S/P vascular surgery (03/16/24) left [facility] History of colonoscopy History of cataract surgery right eye S/P right inguinal hernia repair History of cardiac cath (05/2019) prior to CABG History of right hip replacement History of left hip replacement S/P tympanoplasty replacement of ear drum S/P ear surgery Dr Tse S/P CABG x 5 (05/2019) [facility] Family History Other No family history of adverse response to anesthesia Social History Smoking Status: Never smoker Second Hand Exposure: No; Do You Dip or Chew Tobacco: No; Tobacco Cessation Education Requested by Patient: No Hx Alcohol Use: Yes Alcohol type: beer Hx Substance Use: No Preferred Language: Sami Communication Ability: Effective Scoop Operator Required: No Beliefs That Will Affect Care: None Current Living Situation: Spouse Other Information That Helps Us Care for You: No Feels Safe at Home: Yes Safety Concerns: Feels Safe At This Time Assistive Devices: Denture - Upper, Glasses and Hearing Aid - Bilateral Review of Systems All systems reviewed & are unremarkable except as noted in HPI & below Physical Exam Physical Exam: On exam he is awake alert and oriented x 3. He is in no apparent distress. His blood pressure is 130/80 on the right and 128/80 on the left. Radials and carotids are +2 bilaterally. I cannot appreciate any carotid bruits. His lungs are clear his heart is regular rate and rhythm. Abdominal exam is benign. There is no abnormal dilatation of the aorta. Vascular exam reveals radials carotids +2 bilaterally. Femorals and pedal pulses are all +2 bilaterally. Neurologic exam is intact to motor and sensory function.
[2024-04-28] MEDS ORDERED: ATROPINE SULFATE 0.1 MG/ML 10ML SYR IV PRN (08:55)
[2024-04-28] MEDS ORDERED: fentaNYL citrate PF 100 MCG/2 ML VIAL IV PRN (08:55)
[2024-04-28] MEDS ORDERED: ONDANSETRON INJ 2 MG/ML 2 ML VIAL IV PRN (08:55)
[2024-04-28] MEDS ORDERED: ePHEDrine sulfate 50 MG/ML AMP IV PRN (08:55)
[2024-04-28] MEDS ORDERED: ASPIRIN 81 MG ECTAB PO SCH (09:00)
[2024-04-28] MEDS: LACTATED RINGER'S 1,000 ML IV SCH ×2 (09:13→15:23)
[2024-04-28] MEDS: ASPIRIN 81 MG ECTAB PO ONE (09:14)
--- NOTE | 2024-04-28 09:37 | History & Physical Bridge Note ---
Date of Service April 28, 2024 History & Physical Bridge Note I have examined the patient, reviewed the History & Physical and in the interval since the performance of the History & Physical I have noted the following changes of clinical significance: no changes noted
[2024-04-28] MEDS ORDERED: PROTAMINE SULFATE 10 MG/ML 5 ML VIAL IV ONE (09:47)
[2024-04-28] MEDS ORDERED: ESMOLOL HCL INJ 10 MG/ML 10ML VIAL IV ONE (09:47)
[2024-04-28] MEDS ORDERED: fentaNYL citrate PF 100 MCG/2 ML VIAL ONE ×2 (10:02→10:59)
[2024-04-28] MEDS ORDERED: LIDOCAINE 2% 2 ML VIAL/AMP(20MG/ML) INFIL ONE (10:04)
[2024-04-28] MEDS ORDERED: PROPOFOL IV EMULSION 10 MG/ML 20 ML VIAL IV ONE (10:04)
[2024-04-28] MEDS ORDERED: ROCURONIUM BROMIDE 10 MG/ML 5 ML VIAL IV ONE ×2 (10:06→11:29)
[2024-04-28] MEDS ORDERED: ATROPINE SULFATE 0.4 MG/ML 1 ML VIAL ONE (10:07)
[2024-04-28] MEDS ORDERED: GLYCOPYRROLATE 0.2 MG/ML VIAL ONE (10:07)
[2024-04-28] MEDS: CLINDA 900 MG **Premixed Bag IV SCH (10:15)
[2024-04-28] MEDS ORDERED: HEPARIN SOD (PORCINE) 1000 UNIT/ML ONE (11:16)
[2024-04-28] MEDS ORDERED: LABETALOL HCL IV 5 MG/ML 20ML IV ONE ×5 (11:16)
[2024-04-28] MEDS ORDERED: PHENYLEPHRINE HCL 10 MG/ML VIAL ONE (11:24)
[2024-04-28] MEDS: SURGICEL ABSORB HEMOSTAT 2IN X 14IN TOP ONE (11:43)
[2024-04-28] MEDS: BUPIVACAINE/EPINEPHRINE 0.5% MPF 1:200,000 30 ML VIAL ONE (11:43)
[2024-04-28] MEDS: THROMBIN FOR SOLN 20000 UNIT KIT ONE (11:43)
[2024-04-28] MEDS: GELATIN SPONGE SZ 100 ONE (11:43)
[2024-04-28] MEDS: VISIPAQUE IV ONE (11:50)
[2024-04-28] MEDS: ceFAZolin 330 MG/ML 1 GM VIAL ONE (11:50)
--- NOTE | 2024-04-28 11:59 | Post Operative Brief Note ---
Immediate Post Op Note Date of Surgery April 28, 2024 Pre & Post Diagnosis Operation Date: 04/28/24 10:20 Pre-Op Diagnosis: Right Internal Carotid Artery Stenosis Post-Op Diagnosis: Right Internal Carotid Artery Stenosis I identified the patient and participated in the time-out.: Yes Procedure Operation Date: 04/28/24 10:20 Actual Procedures p Right Transcarotid Artery Revascularization, Ultrasound Left Common Femoral Vein - Stanislaw Lares MD Surgeon Stanislaw Lares MD [employer] Electrical Person MD Lance CamposMinarchick,PAC Estimated Blood Loss 20 Findings Consistent with Post-Op Diagnosis Anesthesia Type General Complications none Disposition Accompanied Patient To Recovery: No Disposition: Recovery Room
[2024-04-28] MEDS ORDERED: SUGAMMADEX SODIUM 200 MG/2 ML VIAL IV ONE (12:00)
--- NOTE | 2024-04-28 12:00 | Operative Report ---
Post Operative Report Pre & Post Diagnosis Operation Date: 04/28/24 10:20 Pre-Op Diagnosis: Right Internal Carotid Artery Stenosis Post-Op Diagnosis: Right Internal Carotid Artery Stenosis I identified the patient and participated in the time-out.: Yes Procedure Operation Date: 04/28/24 10:20 Actual Procedures p Right Transcarotid Artery Revascularization - Stanislaw Lares MD Surgeon Stanislaw Lares MD Plant Clerk Jean Paul Vides MD; Julita Rai PA-C Estimated Blood Loss 20 Findings Consistent with Post-Op Diagnosis Severe stenosis of the right carotid artery resolved following stent placement Specimens None Anesthesia Type General Complications None Disposition Accompanied Patient To Recovery: No Indications Severe >80% stenosis of the right internal carotid artery Description of Procedure The patient was taken to the operating room and placed in supine position. After general anesthesia was accomplished the right-side of the neck and left groin were prepped and draped in a sterile manner. A time out was performed. A transverse 4cm incision was made on the right neck over the sternal and clavicular heads of the sternocleidomastoid muscle and below the omohyoid. Subcutaneous tissue and platysma were divided using electrocautery. Dissection using Metzenbaum scissors proceeded and the carotid sheath was identified medially. It was divided longitudinally. The internal jugular was retracted medially. The common carotid artery was identified with the Vagus nerve posterolateral. The common carotid artery was mobilized with Metzenbaum scissors and umbilical tape was placed around the artery. Once sufficient length, about 2cm of the common carotid were mobilized, a 5-0 Proline suture was used to place a U-Stitch in the anterior surface of the right common carotid artery. Attention was turned to the left common femoral vein which was then accessed under ultrasound guidance using a micropuncture needle. This was exchanged for the Venous Return Sheath over the provided 0.035'' wire. Blood was aspirated from the flow line followed by flushing of the venous sheath with heparinized saline. The sheath was sutured in place to the patient's skin. 8000U of heparin was then given to obtain an ACT > 250. A micropuncture needle was used to access the common carotid artery in the center of the U-stitch. The micropuncture wire was then advance 4cm into the common carotid artery and the micropuncture needle was removed. The micropuncture sheath was advanced 2-3cm into the common carotid artery and the wire and dilator were removed. A carotid angiogram was performed. Next a 0.035'' J guidewire was was inserted and placed just proximal to the right internal carotid artery lesion without engaging the lesion. The micropuncture sheath was exchanged over the guidewire and the Transcarotid Arterial Sheath was advanced to the 2.5cm marker in correct coaxial orientation and the J wire and dilator were removed. The Sheath was sutured to the patient and then flushed with heparinized saline. No air bubbles visualized during flushing The flow controller was connected to the Transcarotid arterial sheath. Arterial blood was allowed to passively fill the device completely to which it was then connected to the Venous return sheath. The flow controller was set to high. The common carotid artery proximal to the access point was then clamped with an angled DeBakey and flow reversal was confirmed. A right carotid angiogram was then performed and the right internal carotid artery lesion was marked. HR and systolic blood pressures were adequate with HR of about 80 and blood pressure between 140 and 160 systolic. The lesion was then crossed using a 0.014'' guidewire. The lesion was then pre-dilated using a 5mm x 25mm balloon. This balloon was then exchanged and primary stenting was performed with the Transcarotid stent, appropriately sized (9-7mm x 40mm). Completion carotid angiography demonstrated patent stent with <50% residual stenosis Antegrade flow was restored following release of the common carotid artery clamp. The arterial sheath was removed and U-Stitch tied. The femoral venous sheath was removed and pressure held for 5 min with adequate hemostasis. Adequate hemostasis was seen of the carotid artery. The wound was inspected and adequate hemostasis was obtained. It was then closed with a running 3-0 Vicryl suture for the platysmal layer and a 4-0 subcuticular Vicryl suture for the skin edges. Dermabond was used for dressing. Patient awoke from anesthesia without difficulties. There was a small hematoma noted in the left groin, non- pulsatile. Was neurovascularly intact, moving all extremities and following commands at case completion. The patient left the operating room in satisfactory condition and tolerated the procedure well Dr. Lares was present and scrubbed for the entire procedure. A total of 35mGy, 3.4 min of fluoroscopy time, and 18cc of contrast were used during the procedure. I attest to the content of the Intraoperative Record and any orders documented therein. Any exceptions are noted below. Supervising Physician Co-Signing Physician Notes Stanislaw Lares MD
--- OUTSIDE RECORDS SUMMARY | 2024-04-28 13:32 | External Medical Summary | Continuity of Care Document ---
Author Name Unknown Organization [facility] [address] [facility] Address [address] [place], [place] [id number] Care Team Providers Care Clinical Support Specialist Name Role Phone [place] Primary Care Physician [phone] [facility]counter [id number] Date(s): 04/19/24 - 04/19/24 [facility] [address], [address] [place] [address] [phone] Encounter Diagnosis Bilateral carotid artery stenosis(Discharge Diagnosis) - 04/19/24 Discharge Disposition: Home or Self Care Attending Physician: MD Luda, Stanislaw Godinez Allergies, Adverse Reactions, Alerts Substance Criticality Severity Reaction Reaction Severity Status codeine unknown Active sulfa drugs unknown Active PCN (penicillin) unknown Act tatiana Assessment and Plan Extracted from: Title:Clinical Document Author:TRACIE Rai Lynn Date:04/19/24 I OUTPATIENT NOTE Name: PEDRO RAINEY Patient Number: [id number] : 1945 Date of Service: 04/19/2024 Chief Complaint: _Carotid stenosis HPI: _Mr. Rainey is an elderly male who presents to Dr. Lares's vascular surgery clinic today for a follow-up appointment regarding his carotid disease. As you may remember, patient is a little over 6 weeks status post uncomplicated left TCAR procedure. Patient denies any complaints or concerns related to his left carotid stent placement or his incision. He denies any new symptoms of cerebrovascular insufficiency including amaurosis, unilateral extremity weakness numbness or tingling, difficulty speaking or swallowing, facial droop, sudden onset confusion, other complaints. He does state that he is ready to proceed with his right TCAR. His carotid ultrasound performed prior to today's appointment demonstrates a widely patent left TCAR stent. His right ICA demonstrates over 80% stenosis. Previous CTA imaging of the right ICA demonstrated this to be over 80%. Current Home Meds: (Last Updated 04/19 13:40) acetaminophen (acetaminophen 325 mg oral tablet) 650 mg PO q4h PRN: as needed for pain ascorbic acid (Glenda-C 500 mg oral tablet) 500 mg PO Daily aspirin (aspirin 81 mg oral delayed release tablet) 81 mg PO Daily baclofen (baclofen 10 mg oral tablet) 10 mg PO tid PRN cholecalciferol (cholecalciferol 125 mcg (5000 intl units) oral tablet) 125 mcg PO Daily clopidogrel (clopidogrel 75 mg oral tablet) 75 mg PO Daily cyanocobalamin (Vitamin B12 500 mcg oral tablet) 500 mcg PO Daily ezetimibe (ezetimibe 10 mg oral tablet) take 1 tablet by mouth EVERY DAY levothyroxine (levothyroxine 50 mcg (0.05 mg) oral tablet) 50 mcg PO Daily lisinopril (lisinopril 20 mg oral tablet) 20 mg PO Daily loratadine (loratadine 10 mg oral capsule) 10 mg PO Daily magnesium oxide (magnesium oxide 250 mg oral tablet) 250 mg PO Daily metoprolol (Metoprolol Tartrate 25 mg oral tablet) 12.5 mg PO bid multivitamin (B-Complex 50 oral tablet) 1 tab PO Daily zinc acetate (zinc (as acetate) 50 mg oral capsule) 50 mg PO Daily Allergies and Sensitivities: codeine(unknown) sulfa drugs(unknown) PCN (penicillin)(unknown) Past Medical History: Problems: Carotid stenosis, bilateral OBJECTIVE Vitals: Last Updated 04/19/24 13:47 Date Temp BP Location Pulse RR SpO2 Pain 04/19/24 124/74 Right Arm 61 98 04/19/24 122/76 Left Arm 04/01/24 0 Vital Signs are the last 3 documented. No Orthostatic Data Available Height and Weight: Last Updated 04/19/24 13:47 Date BMI Wt(kg) Wt(lb) Method Ht(cm) (ft-in) Method 04/19/24 81 178 Standing Scale Heights and Weights are the last 3 documented. Physical Exam Constitutional: In general patient is a healthy-appearing well-nourished well-developed elderly male no distress. He is alert and oriented with any focal deficits. His left supraclavicular incision is well-healed. His right ICA does demonstrate a bruit. ASSESSMENT: _ PLAN: _ 1 ) _bilateral carotid stenosis, status post left TCAR Patient did have severe bilateral ICA stenosis on CTA imaging. His left ICA underwent uncomplicated TCAR about 6 weeks ago at [facility]. He remains on his DAPT and statin medication as instructed. We did discuss performing a right TCAR procedure with the patient and his today due to the severity of his right ICA stenosis and increased risk of CVA if he chooses not to undergo surgery. The risks of the surgery including but not limited to bleeding, infection, nerve damage, stroke, heart attack, , blood clots, were discussed at length with the patient by myself at Dr. Lares's request. Patient expresses understanding and agreement to proceed. This will occur in the next few weeks at the patient's convenience. They are advised to call any questions or concerns. Thank you for letting us participate in the care of this patient. I have personally spent_28__ minutes performing tcfw-as-lice and sqw-ycfh-tp-face activities on this date of service.Time does not include separately reported services. Activities Include: _x_ review of the medical record _x_ obtaining a history x__ physical exam/evaluation __ review labs _x_ review radiology reports _x_ counseling/educating patient/family/caregiver __ discussion/referral to other healthcare professional x__ documenting care in the medical record __ independent interpretation of results _x_ communication of results to patient/family/caregiver _x_ coordination of care Medications acetaminophen 325 mg oral tablet Start: 02/19/24 11:19:00 AM EDT, 2 tab, PO, q4h, PRN: as needed for pain Start Date: 02/19/24 Status: Ordered aspirin 81 mg oral delayed release tablet Start: 02/19/24 11:16:00 AM EDT, 1 tab, PO, Daily Start Date: 02/19/24 Status: Ordered B-Complex 50 oral tablet Start: 02/19/24 11:18:00 AM EDT, 1 tab, PO, Daily Start Date: 02/19/24 Status: Ordered baclofen 10 mg oral tablet Start: 02/19/24 11:17:00 AM EDT, 1 tab, PO, tid, PRN Start Date: 02/19/24 Status: Ordered cholecalciferol 125 mcg (5000 intl units) oral tablet Start: 02/19/24 11:16:00 AM EDT, 1 tab, PO, Daily Start Date: 02/19/24 Status: Ordered clopidogrel 75 mg oral tablet Start: 03/02/24 12:03:00 PM EDT, 1 tab, PO, Daily, Disp# 90 tab, Refills: 3, called to pharmacy Start Date: 03/02/24 Status: Ordered Glenda-C 500 mg oral tablet Start: 02/19/24 11:18:00 AM EDT, 500 mg =, PO, Daily Start Date: 02/19/24 Status: Ordered ezetimibe 10 mg oral tablet take 1 tablet by mouth EVERY DAY Start Date: 02/19/24 Status: Ordered levothyroxine 50 mcg (0.05 mg) oral tablet Start: 02/19/24 11:14:00 AM EDT, 1 tab, PO, Daily Start Date: 02/19/24 Status: Ordered lisinopril 20 mg oral tablet Start: 02/19/24 11:14:00 AM EDT, 1 tab, PO, Daily Start Date: 02/19/24 Status: Ordered loratadine 10 mg oral capsule Start: 02/19/24 11:16:00 AM EDT, 1 cap, PO, Daily Start Date: 02/19/24 Status: Ordered magnesium oxide 250 mg oral tablet Start: 02/19/24 11:18:00 AM EDT, 1 tab, PO, Daily Start Date: 02/19/24 Status: Ordered Metoprolol Tartrate 25 mg oral tablet Start: 02/19/24 11:13:00 AM EDT, 0.5 tab, PO, bid Start Date: 02/19/24 Status: Ordered Vitamin B12 500 mcg oral tablet Start: 02/19/24 11:17:00 AM EDT, 1 tab, PO, Daily Start Date: 02/19/24 Status: Ordered zinc (as acetate) 50 mg oral capsule Start: 02/19/24 11:19:00 AM EDT, 1 cap, PO, Daily Start Date: 02/19/24 Status: Ordered Mental Status 04/19/24 Barriers to Learning one year None evide nt Mandatory Health Literacy Documentation Yes Health Literacy Communication Barriers N ever Primary Language Mohawk Problem List Condition Confirmation Course Effective Dates Status Health St atus Informant Carotid stenosis, bilateral Confirmed Active Diagnosis Diagnosis Type Effective Dates Health Status inical Service Informant Bilateral carotid artery stenosis Discharge Diagnosis 04/19/24 Procedures Procedure Date Related Diagnosis Body Site Status Left TCAR 03/16/24 Completed Vital Signs Most recent to oldest [Reference Range]: 1 2 Patient Weight 81 kg (04/19/24 1:47 PM) Heart Rate 61 bpm (04/19/24 1:47 PM) Blood Pressure 124/74mmHg (04/19/24 1:47 PM) 122/76mmHg (04/19/24 1:40 PM) BP Location # 1 Right Arm (04/19/24 1:47 PM) Left Arm (04/19/24 1:40 PM) Social History Social History Type Response Smoking Status Never smoked cigaret deangelo Sex Male Sex Representation Male (finding) [facility] Outpt Note * TRACIE Rai Lynn: PERFORM Event Display: [facility] Outpt Note Authored Date: [id number] [facility] OUTPATIENT NOTE Name: PEDRO RAINEY Patient Number: [id number] : 1945 Date of Service: 04/19/2024 Chief Complaint: _Carotid stenosis HPI: _Mr. Rainey is an elderly male who presents to Dr. Lares's vascular surgery clinic today for afollow-up appointment regarding his carotid disease. As you may remember, patient is a little over 6 weeks status post uncomplicated left TCAR procedure. Patient denies any complaints or concerns related to his left carotid stent placement or his incision. He denies any new symptoms of cerebrovascular insufficiency including amaurosis, unilateral extremity weakness numbness or tingling, difficulty speaking or swallowing, facial droop, sudden onset confusion, other complaints. He does state thathe is ready to proceed with his right TCAR. His carotid ultrasound performed prior to today's appointment demonstrates a widely patent left TCAR stent. His right ICA demonstrates over 80% stenosis. Previous CTA imaging of the right ICA demonstrated this to be over 80%. Current Home Meds: (Last Updated 04/19 13:40) acetaminophen (acetaminophen 325 mg oral tablet) 650 mg PO q4h PRN: as needed for pain ascorbic acid (Glenda-C 500 mg oral tablet) 500 mg PO Daily aspirin (aspirin 81 mg oral delayed release tablet) 81 mg PO Daily baclofen (baclofen 10 mg oral tablet) 10 mg PO tid PRN cholecalciferol (cholecalciferol 125 mcg (5000 intl units) oral tablet) 125 mcg PO Daily clopidogrel (clopidogrel 75 mg oral tablet) 75 mg PO Daily cyanocobalamin (Vitamin B12 500 mcg oral tablet) 500 mcg PO Daily ezetimibe (ezetimibe 10 mg oral tablet) take 1 tablet by mouth EVERY DAY levothyroxine (levothyroxine 50 mcg (0.05 mg) oral tablet) 50 mcg PO Daily lisinopril (lisinopril 20 mg oral tablet) 20 mg PO Daily loratadine (loratadine 10 mg oral capsule) 10 mg PO Daily magnesium oxide (magnesium oxide 250 mg oral tablet) 250 mg PO Daily metoprolol (Metoprolol Tartrate 25 mg oral tablet) 12.5 mg PO bid multivitamin (B-Complex 50 oral tablet) 1 tab PO Daily zinc acetate (zinc (as acetate) 50 mg oral capsule) 50 mg PO Daily Allergies and Sensitivities: codeine(unknown) sulfa drugs(unknown) PCN (penicillin)(unknown) Past Medical History: Problems: Carotid stenosis, bilateral OBJECTIVE Vitals: Last Updated 04/19/24 13:47 Date Temp BP Location Pulse RR SpO2 Pain 04/19/24 124/74 Right Arm 61 98 04/19/24 122/76 Left Arm 04/01/24 0 Vital Signs are the last 3 documented. No Orthostatic Data Available Height and Weight: Last Updated 04/19/24 13:47 Date BMI Wt(kg) Wt(lb) Method Ht(cm) (ft-in) Method 04/19/24 81 178 Standing Scale Heights and Weights are the last 3 documented. Physical Exam Constitutional: In general patient is a healthy-appearing well-nourished well- developed elderly male no distress. He is alert and oriented with any focal deficits. His left supraclavicular incision is well-healed. His right ICA does demonstrate a bruit. ASSESSMENT: _ PLAN: _ 1 ) _bilateral carotid stenosis, status post left TCAR Patient did have severe bilateral ICA stenosis on CTA imaging. His left ICA underwent uncomplicatedTCAR about 6 weeks ago at [facility]. He remains on his DAPT and statin medication as instructed. We did discuss performing a right TCAR procedure with the patient and his today due to the severity of his right ICA stenosis and increased risk of CVA if he chooses not to undergo surgery. The risks of the surgery including but not limited to bleeding, infection, nerve damage, stroke, heart attack, , blood clots, were discussed at length with the patient by myself at Dr. Lares's request. Patient expresses understanding and agreement to proceed. This will occur in the next few weeks at the patient's convenience. They are advised to call any questions or concerns. Thank you for letting us participate in the care of this patient. I have personally spent_28__ minutes performing ibru-aa-dkfd and oiu-panz-tt-face activities on this date of service.Time does not include separately reported services. Activities Include: _x_ review of the medical record _x_ obtaining a history x__ physical exam/evaluation __ review labs _x_ review radiology reports _x_ counseling/educating patient/family/caregiver __ discussion/referral to other healthcare professional x__ documenting care in the medical record __ independent interpretation of results _x_ communication of results to patient/family/caregiver _x_ coordination of care Electronic Signature on File CC: JAKOB Ash [address] [address] * CC: Hilario Jackson Jr, [address] [address] * Electronically Reviewed/Signed by: Julita Rai PA-C Author Signature Dt/Tm:04/19/2024 04:03 PM [facility] [place]-[address] [id number] Patient Care team information Care Team Personnel Name: JAKOB Driver James J Position: Referring Member Role: Primary Care Provider Address: [address] [address] [place] Name: TRACIE Rai Lynn Position: Physician Piercer Operator Exempt - Vasc Surg Member Role: Lifetime Relationship Address: [address] [place] [id number] [place]
[2024-04-28] MEDS ORDERED: BACLOFEN 10 MG TAB PO PRN (13:48)
[2024-04-28] MEDS ORDERED: oxyCODONE/ACETAMINOPHEN 5mg/325mg TAB PO PRN (13:48)
[2024-04-28] MEDS ORDERED: STAT IV Infusion **Titration per Protocol STA (13:48)
[2024-04-28] MEDS ORDERED: NON-FORMULARY MEDICATION (Chlorpheniramine Maleate 4 mg Tablet) PO PRN (13:48)
--- NOTE | 2024-04-28 14:09 | Critical Care Consultation ---
Date of Consultation April 28, 2024 Assessment & Plan (1) Stenosis of right carotid artery: (2) S/P vascular surgery: (3) Hypertension: (4) Hyperlipidemia: (5) CAD (coronary artery disease): (6) History of TIA (transient ischemic attack): (7) Sleep apnea: (8) Peripheral neuropathy: Plan Reason Critically Ill: 78-year-old male with a significant past medical history of recent TIA hypertension, hyperlipidemia, and carotid artery stenosis who presents status post RIGHT sided TCAR procedure. NEURO - * CAM ICU: NEGATIVE * Neurochecks per unit protocol status post carotid intervention. CARDIAC/VASCULAR - * Hypertension: * Reinstitute patient's home antihypertensive medications when clinically appropriate. * Monitor on telemetry. RESPIRATORY - * No history of pulmonary disease. * Saturating well on room air. GI/NUTRITION - * Progress diet as tolerated. RENAL/LYTES - * Outpatient labs with significantly elevated sodium level likely aberrancy. Will repeat PRP now. * IVF: LR at 125 mL/h. Will aim to get the patient off of fluids as early as possible and when he is tolerating p.o. better. - * Difficulty with voiding: * Was bladder scanned for 650 mL. Straight cath for 500 mL. * Order placed for bladder scanning with straight cath if needed. ENDO - * DMII: * BSGs per unit protocol. ISS --> gtt per unit policy. * Hypothyroidism: * Continue home dose of Levothyroxine as tolerated. HEME - * Stable H&H on outpatient labs performed on 04/19/2024. * Monitor for signs/symptoms of bleeding status post carotid intervention. ID - * Prophylactic antibiotics per surgeon. LINES/IV ACCESS - * PIVs x2 * RIGHT radial arterial line. DVT PROPHYLAXIS - * Per vascular surgery. * SCDs Thank you for allowing us to participate in the care of this patient. Please refer to my attending physician's documentation for any further recommendations. Supervising Physician Co-Signing Physician Notes Patient seen and examined separately from the PRISCILA. I concur with the above unless otherwise specified. Alerted by nursing that the dorsalis pedis pulse was absent on routine neurovascular checks. I evaluated the pulse on the right myself and did note that I was not able to detect dopplerable pulses. He does have a strong dopplerable posterior tibialis pulse on the right. He does not have any signs or symptoms of an ischemic limb. The ICU nurse is going to alert the vascular surgeon on this finding and will defer next steps to the vascular surgical team. Otherwise, he is doing quite well and remains stable hemodynamically. History of Present Illness Reason for Consultation: post right tcar Requesting Physician: Dr. Lares Attending Physician: Stanislaw Laers MD History of Present Illness 78-year-old male with a significant past medical history of hypertension, hypothyroidism, dyslipidemia, and carotid stenosis who presents to the ICU status post RIGHT sided TCAR. Patient had suffered a LEFT hemispheric CVA with symptoms of RIGHT upper extremity weakness which has since resolved. He was found to have bilateral carotid stenosis and underwent successful LEFT-sided TCAR in March. Patient presents today for RIGHT sided TCAR procedure. He had an uneventful surgical course with minimal blood loss. Upon evaluation in room 103, the patient is awake, alert, and oriented. He reports a bit of a sore throat, but otherwise offers no complaints. Speci fically, he denies complaints of difficulty swallowing, trouble breathing, headaches, dizziness, lightheadedness, blurry vision, double vision, slurred speech, unilateral weakness/numbness, chest discomfort, or abdominal pain. Allergies Allergy/AdvReac Type Severity Reaction Status Date / Time adhesive tape Allergy Severe water Verified 04/28/24 08:41 blisters and skin irritation codeine Allergy Intermediate Rash Verified 04/28/24 08:41 Penicillins Allergy Unknown Unknown Verified 04/28/24 08:41 Sulfa (Sulfonamide Allergy Unknown Unknown Verified 04/28/24 08:41 Antibiotics) [id number] Reductase AdvReac Intermediate Muscle Pain Verified 04/28/24 08:41 Inhibitor Home Medications Medication Instructions Recorded Confirmed Type ascorbate calcium (vitamin C) 500 500 mg PO QAM 02/23/24 04/28/24 History mg tablet baclofen 5 mg tablet 5 mg PO TID PRN muscle spasms 02/23/24 04/28/24 History chlorpheniramine maleate 4 mg 4 mg PO BID PRN seasonal allergies 02/23/24 04/28/24 History tablet cholecalciferol (vitamin D3) 125 125 mcg PO QAM 02/23/24 04/28/24 History mcg (5,000 unit) tablet (Vitamin D3) clindamycin HCl 300 mg capsule 300 mg PO UD PRN dental procedures 02/23/24 04/28/24 History clopidogrel 75 mg tablet (Plavix) 75 mg PO QAM 02/23/24 04/28/24 History cyanocobalamin (vitamin B-12) 500 500 mcg PO QAM 02/23/24 04/28/24 History mcg tablet (Vitamin B-12) ezetimibe 10 mg tablet (Zetia) 5 mg PO DAILY 02/23/24 04/28/24 History levothyroxine 50 mcg tablet 50 mcg PO QAM 02/23/24 04/28/24 History lisinopril 20 mg tablet 20 mg PO DAILY 02/23/24 04/28/24 History magnesium 250 mg tablet 250 mg PO QAM 02/23/24 04/28/24 History metoprolol tartrate 25 mg tablet 12.5 mg PO BID 02/23/24 04/28/24 History vitamin B complex 1 tab PO QAM 02/23/24 04/28/24 History aspirin 81 mg tablet 81 mg PO PM 03/16/24 04/28/24 History oxycodone-acetaminophen 5 mg-325 1 - 2 tab PO Q6H PRN pain #20 tabs 03/17/24 04/28/24 Rx mg tablet (Percocet) Patient History Medical History Ear infection original surgery on 03/01 cancelled due to ear infection, which started on 02/27, saw ear doctor, Curt Nunez NP in [facility] and will see again on 03/12/24 prior to surgery History of difficult intubation Questionable - Patient states he was told he "should be intubated with a smaller scope" after 2018 CABG ([facility] 05/2019) Osteoarthritis Hx of renal calculi (2020) passed on his own Hx of colonic polyps Hypothyroidism On anticoagulant therapy Peripheral neuropathy bilateral feet Sleep apnea unable to tolerate CPAP at night History of TIA (transient ischemic attack) 01/27/24 - treated at [facility]. presented with dizziness and weakness of right hand. Did not see cardio but states that cardio made aware of recent TIA and recommended 30 day case monitor (patient currently wearing, to end 03/07/[address]) Hyperlipidemia Hypertension CAD (coronary artery disease) follows with Dr. 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) [facility] Family History Other No family history of adverse response to anesthesia Social History Smoking Status: Never smoker Second Hand Exposure: No; Do You Dip or Chew Tobacco: No; Tobacco Cessation Education Requested by Patient: No Hx Alcohol Use: No Hx Substance Use: No Preferred Language: Malay Communication Ability: Effective Rabbit Fancier Required: No Beliefs That Will Affect Care: None Current Living Situation: Spouse Other Information That Helps Us Care for You: No Feels Safe at Home: Yes Safety Concerns: Feels Safe At This Time Assistive Devices: Denture - Upper and Hearing Aid - Bilateral Review of Systems Review of Systems: A complete 10 point review of systems was reviewed with the patient with pertinent positives and negatives as per history of present illness. All else were negative. Physical Exam Physical Exam: VITAL SIGNS - Vital signs and nursing notes were reviewed. GENERAL - 78-year-old male appearing his stated age who is in no acute distress. Communicates well with provider and answers questions appropriately. SKIN - Incision site at the base of the RIGHT-sided neck is clean, dry, and without significant underlying edema or ecchymosis. LEFT-sided groin site dressing clean, dry, and intact. HEAD - NC/AT. EYES - PERRL with EOMI bilaterally. Sclera anicteric. EARS - No deformities of external structures noted on gross examination bilaterally. NOSE - Midline and without cyanosis. N MOUTH/OROPHARYNX - Without perioral cyanosis. NECK - Neck with FROM. LUNGS - Chest wall symmetric without accessory muscle use, intercostals retractions, or central cyanosis. Normal vesicular breath sounds CTA B/L. No wheezes, rales, or rhonchi appreciated. CARDIAC - RRR with S1/S2. No murmur, rubs, or gallops appreciated. ABDOMEN - Abdominal contour obese without pulsations or visible masses. BS normoactive all four quadrants. No tenderness, palpable masses, hepatosplenomegaly, or ascites noted. EXTREMITIES - No clubbing or peripheral cyanosis. No pretibial edema present. +3/5 radial and dorsalis pedis pulses palpated throughout. +5/5 strength noted in UE/LE bilaterally. NEUROLOGIC - Cranial nerves II through XII grossly intact. Sensory intact to light touch throughout. PSYCH - A&Ox3 and cooperates fully with examiner. Pt is very pleasant and interacts well with examiner. Results & Data Results & Data Vital Signs (Past 12 Hours) Vital Signs Temp Pulse Pulse Resp BP BP BP 04/28/24 13:15 76 12 125/71 144/64 H 04/28/24 13:05 36.1 C L 75 18 119/69 134/72 04/28/24 12:55 81 14 120/80 121/64 04/28/24 12:45 81 14 123/72 140/68 04/28/24 12:35 87 19 109/76 04/28/24 12:29 36.4 C L 88 19 114/76 04/28/24 08:48 36.4 C L 56 L 20 149/73 H 173/77 H Pulse Ox O2 Del Method O2 Flow Rate 04/28/24 13:15 97 Room Air 04/28/24 13:05 93 Room Air 04/28/24 12:55 94 Room Air 04/28/24 12:45 94 Room Air 04/28/24 12:35 96 Room Air 04/28/24 12:29 99 Oxymask 11 04/28/24 08:48 99 Room Air Coding Level of Care Code 46285 IN/OBS CONSULT LVL 3,45M Diagnoses Stenosis of right carotid artery I65.21 S/P vascular surgery Z98.890 Hypertension I10 Hyperlipidemia E78.5 CAD (coronary artery disease) I25.10 History of TIA (transient ischemic attack) Z86.73 Sleep apnea G47.30 Peripheral neuropathy G62.9
--- NOTE | 2024-04-28 14:09 | Anesthesiology Progress Note ---
Date of Service April 28, 2024 Anesthesia Post Procedure Vital Signs Vital Signs: Temp Pulse Pulse Resp BP BP BP 04/28/24 13:15 76 12 125/71 144/64 H 04/28/24 13:05 36.1 C L 75 18 119/69 134/72 04/28/24 12:55 81 14 120/80 121/64 04/28/24 12:45 81 14 123/72 140/68 04/28/24 12:35 87 19 109/76 04/28/24 12:29 36.4 C L 88 19 114/76 04/28/24 08:48 36.4 C L 56 L 20 149/73 H 173/77 H Pulse Ox O2 Del Method O2 Flow Rate 04/28/24 13:15 97 Room Air 04/28/24 13:05 93 Room Air 04/28/24 12:55 94 Room Air 04/28/24 12:45 94 Room Air 04/28/24 12:35 96 Room Air 04/28/24 12:29 99 Oxymask 11 04/28/24 08:48 99 Room Air Transfer of Care Handoff Completed per policy Notes Mental Status: alert / awake / arousable Patient Amnestic to Procedure: Yes Nausea / Vomiting: adequately controlled Pain: adequately controlled Airway Patency, RR, SpO2: stable & adequate BP & HR: stable & adequate Hydration State: stable & adequate Anesthetic Complications: no major complications apparent
[2024-04-28] MEDS: CLINDAMYCIN/D5W 600 MG/50 ML BAG IV SCH (18:25)
[2024-04-28] MEDS: ACETAMINOPHEN 325 MG TAB PO ONE (18:25)
[2024-04-28] MEDS: METOPROLOL TARTRATE 25 MG TAB PO SCH (21:38)
[2024-04-28] MEDS: ASPIRIN 81 MG ECTAB PO SCH (21:41)
[2024-04-28] MEDS: PHENYLEPHRINE/NSS 25 MG/250 ML BAG IV PRN (22:36)
[2024-04-29] MEDS: LEVOTHYROXINE SODIUM 50 MCG TABLET PO SCH (06:29)
[2024-04-29 08:59] VITALS: TEMP 98.2
--- NOTE | 2024-04-29 09:16 | Critical Care Progress Note ---
Date of Service April 29, 2024 Assessment & Plan (1) Stenosis of right carotid artery: (2) S/P vascular surgery: (3) Hypertension: (4) Hyperlipidemia: (5) CAD (coronary artery disease): (6) History of TIA (transient ischemic attack): (7) Sleep apnea: (8) Peripheral neuropathy: Plan Reason Critically Ill: 78-year-old male with a significant past medical history of recent TIA hypertension, hyperlipidemia, and carotid artery stenosis who presents status post RIGHT sided TCAR procedure. NEURO - * CAM ICU: NEGATIVE * Neurochecks per unit protocol status post carotid intervention. CARDIAC/VASCULAR - * Hypertension: * Reinstitute patient's home antihypertensive medications when clinically appropriate. Patient briefly required phenylephrine overnight. * Monitor on telemetry. RESPIRATORY - * No history of pulmonary disease. * Saturating well on room air. GI/NUTRITION - * Progress diet as tolerated. RENAL/LYTES - * Outpatient labs with significantly elevated sodium level likely aberrancy. BMP ordered for now. * IVF: Defer management of IV fluids to the vascular surgeon - * Mild urinary retention. Follow clinically. ENDO - * DMII: * BSGs per unit protocol. ISS --> gtt per unit policy. * Hypothyroidism: * Continue home dose of Levothyroxine as tolerated. HEME - * Stable H&H on outpatient labs performed on 04/19/2024. * Monitor for signs/symptoms of bleeding status post carotid intervention. ID - * Prophylactic antibiotics per surgeon. LINES/IV ACCESS - * PIVs x2 * RIGHT radial arterial line. DVT PROPHYLAXIS - * Per vascular surgery. * SCDs Suspect patient will be discharged home today. Critical care services to sign off at this time. Thank you for the consult. Please call questions. Admission and Anticipated Discharge Date Admission Date: April 28, 2024 Review of Systems Review of Systems: All systems reviewed & are unremarkable except as noted in HPI & below Physical Exam Physical Exam: VITAL SIGNS - Vital signs and nursing notes were reviewed. GENERAL - 78-year-old male appearing his stated age who is in no acute distress. Communicates well with provider and answers questions appropriately. SKIN - Incision site at the base of the RIGHT-sided neck is clean, dry, and without significant underlying edema or ecchymosis. LEFT-sided groin site dressing clean, dry, and intact. HEAD - NC/AT. EYES - PERRL with EOMI bilaterally. Sclera anicteric. EARS - No deformities of external structures noted on gross examination bilaterally. NOSE - Midline and without cyanosis. MOUTH/OROPHARYNX - Without perioral cyanosis. NECK - Neck with FROM. LUNGS - Chest wall symmetric without accessory muscle use, intercostals retractions, or central cyanosis. Normal vesicular breath sounds CTA B/L. No wheezes, rales, or rhonchi appreciated. CARDIAC - RRR with S1/S2. No murmur, rubs, or gallops appreciated. ABDOMEN - Abdominal contour obese without pulsations or visible masses. BS normoactive all four quadrants. No tenderness, palpable masses, hepatosplenomegaly, or ascites noted. EXTREMITIES - No clubbing or peripheral cyanosis. No pretibial edema present. Pulses unable to be dopplered in the right pedal pulse. NEUROLOGIC - Cranial nerves II through XII grossly intact. Sensory intact to light touch throughout. PSYCH - A&Ox3 and cooperates fully with examiner. Pt is very pleasant and interacts well with examiner. Results & Data Results & Data Vital Signs (Past 12 Hours) Vital Signs Temp Pulse Pulse Resp BP BP BP 04/29/24 09:00 59 L 22 98/52 L 04/29/24 08:02 89 23 04/29/24 08:00 109/59 L 04/29/24 08:00 36.8 C 04/29/24 08:00 59 L 107/57 L 04/29/24 08:00 89 04/29/24 07:06 42 L 15 04/29/24 06:00 59 L 18 107/57 L 04/29/24 05:03 46 L 18 109/50 L 04/29/24 04:00 47 L 18 102/56 L 04/29/24 03:02 49 L 17 104/60 123/50 L 04/29/24 03:01 49 L 15 104/60 04/29/24 02:00 36.6 C 48 L 13 120/59 L 04/29/24 01:00 44 L 125/57 L 04/29/24 00:00 48 L 17 114/60 04/29/24 00:00 44 L 04/28/24 23:09 42 L 14 04/28/24 22:00 53 L 18 04/28/24 21:45 55 L 18 99/47 L 04/28/24 21:36 56 L 23 Pulse Ox O2 Del Method 04/29/24 09:00 91 Room Air 04/29/24 08:02 93 04/29/24 08:00 04/29/24 08:00 04/29/24 08:00 04/29/24 08:00 04/29/24 07:06 97 Room Air 04/29/24 06:00 92 04/29/24 05:03 96 04/29/24 04:00 97 04/29/24 03:02 94 Room Air 04/29/24 03:01 94 04/29/24 02:00 94 04/29/24 01:00 04/29/24 00:00 96 04/29/24 00:00 04/28/24 23:09 96 04/28/24 22:00 93 04/28/24 21:45 95 04/28/24 21:36 97 Coding Level of Care Code 64039 SUB INP/OBS CARE 2/35MIN Diagnoses Stenosis of right carotid artery I65.21 S/P vascular surgery Z98.890 Hypertension I10 Hyperlipidemia E78.5 CAD (coronary artery disease) I25.10 History of TIA (transient ischemic attack) Z86.73 Sleep apnea G47.30 Peripheral neuropathy G62.9
[2024-04-29 10:05] VITALS: BP 102/52; RESP 13; O2SAT 92
[2024-04-29] MEDS: EZETIMIBE 10 MG TAB PO SCH (10:22)
[2024-04-29] MEDS: CLOPIDOGREL BISULFATE 75 MG TAB PO SCH (10:24)
[2024-04-29] MEDS: CYANOCOBALAMIN (B-12) 500 MCG TABLET PO SCH (10:24)
[2024-04-29] MEDS: ASCORBIC ACID 500 MG TAB PO SCH (10:29)
[2024-04-29] MEDS: lisinopril 20 MG TAB PO SCH (10:29)
[2024-04-29] MEDS: MAGNESIUM OXIDE 400 MG TAB PO SCH (10:29)
[2024-04-29] MEDS: VITAMIN B COMPLEX TAB PO SCH (10:29)
[2024-04-29] MEDS: CHOLECALCIFEROL 125 MCG (5,000 UNITS) TAB PO SCH (10:29)
[2024-04-29 10:38] LABS: Calcium 9.4 mg/dl (8.6-10.3); Creatinine Clr Calc Pharmacy 54.2 ml/min; Potassium 4.7 mmol/L (3.5-5.1)
--- NOTE | 2024-04-29 13:07 | Surgery Progress Note ---
Date of Service April 29, 2024 Assessment & Plan (1) History of transcarotid artery revascularization (TCAR): Plan: Patient POD #1 from a right tcar. His post op course has been uneventful. D/C today Admission and Anticipated Discharge Date Admission Date: April 28, 2024 Subjective Patient without any complaints. Denies any focal neuro deficits. Physical Exam Constitutional: WD/WN, vitals as above Respiratory: normal respiratory effort; no respiratory distress Cardiovascular: Rate/Rhythm: regular rate and regular rhythm Skin: + incision (dry and clean) Neurologic: CN's II-XI intact bilaterally and moves all extremities Psychiatric: A+Ox3, euthymic affect Results & Data Vital Signs (Past 12 Hours) Vital Signs Temp Pulse Pulse Resp BP BP BP 04/29/24 10:04 59 L 13 102/52 L 04/29/24 09:18 107/56 L 04/29/24 09:00 59 L 22 98/52 L 04/29/24 08:02 89 23 04/29/24 08:00 109/59 L 04/29/24 08:00 36.8 C 04/29/24 08:00 59 L 107/57 L 04/29/24 08:00 89 04/29/24 07:06 42 L 15 04/29/24 06:00 59 L 18 107/57 L 04/29/24 05:03 46 L 18 109/50 L 04/29/24 04:00 47 L 18 102/56 L 04/29/24 03:02 49 L 17 104/60 123/50 L 04/29/24 03:01 49 L 15 104/60 04/29/24 02:00 36.6 C 48 L 13 120/59 L Pulse Ox O2 Del Method 04/29/24 10:04 92 Room Air 04/29/24 09:18 04/29/24 09:00 91 Room Air 04/29/24 08:02 93 04/29/24 08:00 04/29/24 08:00 04/29/24 08:00 04/29/24 08:00 04/29/24 07:06 97 Room Air 04/29/24 06:00 92 04/29/24 05:03 96 04/29/24 04:00 97 04/29/24 03:02 94 Room Air 04/29/24 03:01 94 04/29/24 02:00 94
--- NOTE | 2024-04-29 13:10 | Discharge Summary ---
Date of Service April 29, 2024 Admission HPI Per Admitting Provider The patient is a 78-year-old gentleman who in the end of January suffered a left hemispheric stroke which even weakness in his right arm which lasted approximately 4 to 5 hours. He did return to normal at that time. He has no recurrent episodes or previous episodes of this problem. He had a CT angiogram which showed a 60 to 65% narrowing of the left internal carotid artery. He does have a history of hypertension and coronary disease. He is on Plavix. He underwent an uneventful left TCAR and now is admitted for a TCAR of his asymptomatic right carotid stenosis Admission Exam Per Admitting Provider On exam he is awake alert and oriented x 3. He is in no apparent distress. His blood pressure is 130/80 on the right and 128/80 on the left. Radials and carotids are +2 bilaterally. I cannot appreciate any carotid bruits. His lungs are clear his heart is regular rate and rhythm. Abdominal exam is benign. There is no abnormal dilatation of the aorta. Vascular exam reveals radials carotids +2 bilaterally. Femorals and pedal pulses are all +2 bilaterally. Neurologic exam is intact to motor and sensory function. Principal Diagnosis Right internal carotid artery stenosis Discharge Exam Constitutional WD/WN, vitals as above Respiratory normal respiratory effort; no respiratory distress Cardiovascular Rate/Rhythm: regular rate and regular rhythm Skin + incision (dry and clean) Neurologic CN's II-XI intact bilaterally and moves all extremities Psychiatric A+Ox3, euthymic affect Discharge Data Allergies Allergy/AdvReac Type Severity Reaction Status Date / Time adhesive tape Allergy Severe water Verified 04/28/24 08:41 blisters and skin irritation codeine Allergy Intermediate Rash Verified 04/28/24 08:41 Penicillins Allergy Unknown Unknown Verified 04/28/24 08:41 Sulfa (Sulfonamide Allergy Unknown Unknown Verified 04/28/24 08:41 Antibiotics) [id number] Reductase AdvReac Intermediate Muscle Pain Verified 04/28/24 08:41 Inhibitor Consultations 04/28/24 13:48 Consult [employer] Routine Procedures Performed Operation Date: 04/28/24 10:20 Actual Procedures p Right Transcarotid Artery Revascularization - Stanislaw Lares MD Ordered Studies 04/28/24 07:19 EV angio carotid cerv RT Routine Hospital Course (1) History of transcarotid artery revascularization (TCAR): Patient POD #1 from a right tcar. His post op course has been uneventful. D/C today Total Time Total Time Spent Total Time Spent (In Minutes): x Discharge Plan Discharge Items Patient Disposition: Home - Self-Care Reason For Visit: RIGHT CAROTID STENOSIS Discharge Diagnosis: Right internal carotid stenosis Activity: Per Instructions section Non-emergency contact: Surgeon Call non-emergency contact if: your temperature is above 101.5, your wound has increased redness, your wound has increased drainage and your wound pain has increased Follow-up/Referrals: Scott Driver CRNP [Primary Care Provider] - Diet: Heart Healthy Addtl Attending Provider Instructions: SPECIAL CARE INSTRUCTIONS: Diet: * You may return to previous diet. Medications: * Continue to take Aspirin, plavix and statin as directed. Incision Care: * You may shower, but do not rub incision. You may let the warm soapy water run over it. Be sure to dry the incision well after bathing. * Do not shave directly over the incision until it is healed. * DO NOT IMMERSE THE INCISION IN A TUB/POOL/etc. UNTIL HEALED. Restrictions: * Do not drive for at least one week or if you are still taking any narcotic pain medication. * Do not lift anything heavier than a gallon of milk for one week after going home. Possible Complications: * Numbness - It is normal to have some numbness around the incision. Numbness can extend beyond the incision to areas of the neck, ear and face. The numbness is due to bruising of nerves during the surgery and will gradually improve over a period of months. * Hoarseness/Difficulty Speaking and Swallowing - The bruising of nerves in the neck can also cause a hoarse voice, difficulty speaking or swallowing. This may improve over time, HOWEVER, if it continues for more than a few days please contact our office ([phone]). * Excessive Swelling - There will be some swelling immediately after surgery which usually resolves within one week. If you notice that the swelling is g etting worse, notify your surgeon ([phone]). * Drainage/Bleeding - If there is any drainage or bleeding, it should be a very small amount (less than a teaspoon per day). If you have excessive bleeding or drainage from the incision, call your surgeon ([phone]) right away. ACTIVATION OF EMERGENCY MEDICAL SYSTEM: Call 911, immediately, if you experience any of the following: Warning Signs and Symptoms of Stroke: * Sudden numbness or weakness of the face, arm or leg, especially on one side of the body * Sudden confusion, trouble speaking or understanding * Sudden trouble seeing in one or both eyes * Sudden trouble walking, dizziness, loss of balance or coordination * Sudden severe headache with no cause Do not delay calling 911 if you experience any warning signs or symptoms of a stroke. Delay in seeking medical attention may affect what treatments can be given to you. Risk Factors for Stroke: You can reduce your chances of stroke by working with your medical provider to adopt a healthy lifestyle. Some specific ways to lower your chance of stroke are: * If you are a smoker, now is the time to stop smoking cigarettes * If you are diabetic, improve the control of your blood sugars * Avoid excessive amounts of alcohol * Control high blood pressure * Lose weight if you are overweight * Be sure to lead an active lifestyle * Eat a healthy diet low in salt, cholesterol and fat You should know about other risk factors for stroke that you are unable to control. These include: * Age 55 years or older * Male gender * Certain racial groups: , or / * Family History of Stroke, Mini stroke or Heart Attack * Sickle Cell Disease You will be receiving a call from the Vascular Surgery Nurse after you are discharged. FOLLOW UP VISIT: It is important for you to keep your follow up appointments with your medical provider. Keep any scheduled doctor appointments. Call [phone] to schedule a follow up appointment if one not already s cheduled. Pending Studies at Discharge: Yes Stand-Alone Forms: My [facility], Smoking Cessation Medications and DC Order Prescriptions: No Action aspirin 81 mg Tablet 81 mg PO PM oxycodone-acetaminophen [Percocet] 5-325 mg Tablet 1 - 2 tab PO Q6H PRN (Reason: pain) Qty: 20 0RF chlorpheniramine maleate 4 mg Tablet 4 mg PO BID PRN (Reason: seasonal allergies) lisinopril 20 mg Tablet 20 mg PO DAILY levothyroxine 50 mcg Tablet 50 mcg PO QAM metoprolol tartrate 25 mg Tablet 12.5 mg PO BID cyanocobalamin (vitamin B-12) [Vitamin B-12] 500 mcg Tablet 500 mcg PO QAM ascorbate calcium (vitamin C) 500 mg Tablet 500 mg PO QAM vitamin B complex Tablet 1 tab PO QAM magnesium 250 mg Tablet 250 mg PO QAM cholecalciferol (vitamin D3) [Vitamin D3] 125 mcg (5,000 unit) Tablet 125 mcg PO QAM ezetimibe [Zetia] 10 mg Tablet 5 mg PO DAILY clindamycin HCl 300 mg Capsule 300 mg PO UD PRN (Reason: dental procedures) clopidogrel [Plavix] 75 mg Tablet 75 mg PO QAM baclofen 5 mg Tablet 5 mg PO TID PRN (Reason: muscle spasms) Admission Data Admit Date/Time: 04/28/24 09:37 Attending Provider: Stanislaw Lares Admit Provider: Stanislaw Lares Primary Care Provider: Scott Driver Other Providers: Derrick Tidwell; Imtiaz Schulte; Daniel Lemus; Wilner Cornejo; Karl Mckeon; Melisa Andrade; Lars Mott; Brynn Prajapati; Jacklyn Baum; Hilario Russ; Jaron Agosto; Ailyn Noriega
[2024-04-29 14:03] VITALS: PULSE 56
== END 2024-04-29 14:33 | disposition home or self-care (01) | DRG 36 ==
LOC: ASU 08:05 → 1E 09:37
PROC: EV.TCAR (2024-04-28 10:20)